=== PATIENT | female | born 2005 | race Caucasian/White ===

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

== ENCOUNTER 2024-03-01 07:35 | Emergency (ER) | payer SELFPAY ==
--- NOTE | 2024-03-01 08:05 | ER ---
Nurse's Notes [facility] Name: Miriam Giraldo Age: 18 yrs Sex: Female : 2005 Arrival Date: 03/01/2024 Time: 07:35 Bed 6 Private MD: Diagnosis: Streptococcal pharyngitis Presentation: 03/01 07:44 Chief complaint: Patient states: Body aches, sore throat, rash, fatigue for 4 days. ll1 Coronavirus screen: Client denies travel out of the [place] in the last 14 days. fatigue, fever, headache, sore throat, Client presents with at least one sign or symptom that may indicate coronavirus-19. Standard/surgical mask placed on the client. Ebola Screen: Patient denies travel to an Ebola-affected area in the 21 days before illness onset. Initial Sepsis Screen: Does the patient meet any 2 criteria? No. Patient's initial sepsis screen is negative. Does the patient have a suspected source of infection? No. Patient's initial sepsis screen is negative. Risk Assessment: Do you want to hurt yourself or someone else? Patient reports no desire to harm self or others. Onset of symptoms was February 27, 2024. 07:44 Method Of Arrival: Ambulatory ll1 07:44 Acuity: ELIDA 4 ll1 Triage Assessment: 07:45 General: Appears in no apparent distress. Behavior is calm, cooperative, appropriate bp for age. Pain: Complains of pain in neck. EENT: Reports pain when swallowing. Neuro: No deficits noted. Cardiovascular: No deficits noted. Respiratory: No deficits noted. GI: No signs and/or symptoms were reported involving the gastrointestinal system. : No signs and/or symptoms were reported regarding the genitourinary system. Derm: No deficits noted. Musculoskeletal: No deficits noted. Historical: - Allergies: 07:43 No Known Drug Allergies; ll1 - PMHx: 07:43 None; ll1 - PSHx: 07:43 None; ll1 - Immunization history:: Adult Immunizations up to date. - Infectious Disease History:: Denies. - Social history:: Smoking status: Patient denies any tobacco usage or history of. Screenin:45 [facility] ED Fall Risk Assessment (Adult) History of falling in the last 3 months, bp including since admission No falls in past 3 months (0 pts) Confusion or Disorientation No (0 pts) Intoxicated or Sedated No (0 pts) Impaired Gait No (0 pts) Mobility Assist Device Used No (0 pt) Altered Elimination No (0 pt) Score/Fall Risk Level 0 - 2 = Low Risk Oriented to surroundings. Abuse screen: Denies threats or abuse. Denies injuries from another. Nutritional screening: No deficits noted. Tuberculosis screening: No symptoms or risk factors identified. Assessment: 07:45 General: Appears in no apparent distress. Behavior is calm, cooperative, appropriate bp for age. Respiratory: Airway is patent Respiratory effort is even, unlabored, Breath sounds are clear bilaterally. EENT: Throat is reddened. Vital Signs: 07:44 BP 123 / 87; Pulse 108; Resp 17; Temp 98.2; Pulse Ox 100% ; Weight 44.45 kg; Height 5 ll1 ft. 2 in. ; Pain 10/10; 07:44 Body Mass Index 17.92 (44.45 kg, 157.48 cm) - Percentile 5.8 % ll1 07:44 Pain Scale: Adult ll1 ED Course: 07:37 Patient arrived in ED. mr 07:43 Arm band placed on Patient placed in an exam room, on a stretcher. ll1 07:45 Triage completed. ll1 07:45 Patient has correct armband on for positive identification. bp 07:51 Severiano Muhammad, ANGELITO is Primary Nurse. bp 07:59 Dinesh Byrne MD is Attending Physician. bo1 07:59 Provided Education on: use of call michel. Pulse ox on. jl7 07:59 No provider procedures requiring assistance completed. Patient did not have IV access jl7 during this emergency room visit. Administered Medications: No medications were administered Medication: 07:45 VIS not applicable for this client. bp Outcome: 08:04 Discharge ordered by . bo1 08:14 Discharged to home ambulatory, jl7 08:14 Condition: stable 08:14 Discharge instructions given to patient, Instructed on discharge instructions, follow up and referral plans. medication usage, Demonstrated understanding of instructions, follow-up care, medications, Prescriptions given X 1, 08:15 Patient left the ED. jl7 Signatures: Megha Alvarez, Reg Reg BrandBg RN RN jl7 Severiano Muhammad RN RN bp Lewis, Lynsay, RN RN ll1 Oei, Dinesh, MD MD bo1
--- NOTE | 2024-03-01 08:05 | EDPHYS ---
Physician Documentation [facility] Name: Miriam Giraldo Age: 18 yrs Sex: Female : 2005 Arrival Date: 03/01/2024 Time: 07:35 Bed 6 Private MD: ED Physician Dinesh Byrne HPI: 03/01 07:59 This 18 yrs old Female presents to ER via Ambulatory with complaints of Sore Throat, bo1 Rash. 07:59 The patient presents with sore throat. The patient describes throat pain as burning. bo1 Onset: The symptoms/episode began/occurred suddenly, 3 day(s) ago. Severity of symptoms: At their worst the symptoms were moderate, in the emergency department the symptoms have improved. Twice with strep throat. Also a skin rash, sand papery at the right hip and across the lower abd which has since resolved. Historical: - Allergies: 07:43 No Known Drug Allergies; ll1 - PMHx: 07:43 None; ll1 - PSHx: 07:43 None; ll1 - Immunization history:: Adult Immunizations up to date. - Infectious Disease History:: Denies. - Social history:: Smoking status: Patient denies any tobacco usage or history of. ROS: 08:01 Constitutional: Negative for fever, chills, and weight loss bo1 08:01 Constitutional: Positive for 08:01 ENT: Positive for difficulty swallowing, 08:01 Neck: Negative for pain with movement, pain at rest, 08:01 Cardiovascular: Negative for chest pain, 08:01 Respiratory: Negative for cough, shortness of breath, 08:01 Skin: Positive for rash, Rash has since resolved, 08:01 All other systems are negative, Exam: 08:02 Constitutional: This is a well developed, well nourished patient who is awake, alert, bo1 and in no acute distress. 08:02 Constitutional: The patient appears alert, awake, comfortable, non-toxic, 08:02 Head/face: Exam is negative for acute changes, 08:02 Eyes: Conjunctiva: no acute changes, 08:02 ENT: External ear(s): are unremarkable, TM's: are normal, Posterior pharynx: erythema, that is mild, exudate, is not appreciated, 08:02 Cardiovascular: Rate: normal, Pulses: no pulse deficits are appreciated, Heart sounds: normal, 08:02 Respiratory: the patient does not display signs of respiratory distress, Breath sounds: are clear throughout, 08:02 Skin: no rash present. Vital Signs: 07:44 BP 123 / 87; Pulse 108; Resp 17; Temp 98.2; Pulse Ox 100% ; Weight 44.45 kg; Height 5 ll1 ft. 2 in. ; Pain 10/10; 07:44 Body Mass Index 17.92 (44.45 kg, 157.48 cm) - Percentile 5.8 % ll1 07:44 Pain Scale: Adult ll1 MDM: 07:59 Medical Screening Exam initiated bo1 08:03 Differential diagnosis: group A strep tonsillitis, pharyngitis. bo1 08:03 Data reviewed: vital signs. Special discussion: I discussed with the patient/guardian bo1 that our pediatricians prefer to use Amoxicillin as a first-line therapy for the symtoms/findings of this patient's presentation, the parent(s) request Family and pt have elected to forgo any strep testing. Administered Medications: No medications were administered Disposition Summary: 03/01/24 08:04 Discharge Ordered Notes: Location: Home bo1 Problem: new bo1 Symptoms: are unchanged bo1 Condition: Stable bo1 Diagnosis - Streptococcal pharyngitis bo1 Followup: bo1 - With: Private Physician - When: Upon discharge from the Emergency Department - Reason: Recheck today's complaints, Continuance of care Discharge Instructions: - Discharge Summary Sheet bo1 - Strep Throat, Adult bo1 Forms: - Medication Reconciliation Form bo1 - Antibiotic Education bo1 - Prescription Opioid Use bo1 - Patient Portal Instructions bo1 - Leadership Thank You Letter bo1 Prescriptions: - Amoxicillin 250 mg/5 mL Oral Suspension for Reconstitution - take 10 milliliter ORAL route every 8 hours for 10 days; 300 milliliter; bo1 Refills: 0, Product Selection Permitted Signatures: Severiano Muhammad RN Concepción Davison RN RN ll Dinesh Byrne MD MD bo1
[2024-03-01 08:19] VITALS: BP 123/87; TEMP 98.2; O2SAT 100
== END 2024-03-01 08:15 | disposition home or self-care (01) ==
LOC: ER 07:35
DX: J02.0 Streptococcal pharyngitis (principal)
CPT/HCPCS: 99283

== ENCOUNTER 2024-03-04 08:19 | Emergency (ER) | payer SELFPAY ==
--- OUTSIDE RECORDS SUMMARY | 2024-03-04 08:23 | XMS REPORT | Continuity of Care Document ---
Author Name Unknown Address [address] [facility] [address] [place] [address] [facility] thconnect Address [address] [facility] [address] [place] [address] Care Team Providers Care Diabetes Clinical Manager Name Role Phone Bee Michael Primary Care Physician Allergies, Adverse Reactions, Alerts Allergy Name Allergy Type Status Severity Reaction(s) Onset Date Inactive Date Treating Clinician Comments Source [place] - Intraven ous Propensi ty to adverse reaction to drug Active 09-04 00:00: 00 Jarett Yudith Hussein Medications Ordered Medication Name Filled Medication Name Start Date Stop Date Current Medication? Ordering Clinician Indication Dosage Frequency Signature (SIG) Comments Components Source doxycycline hyclate 100 mg tablet 2023-03 1- 00:00: 00 Yes 1mg Jarett Savage [employer] Drafter a 150 mg/mL intramuscul ar syringe 2023-03 0-25 00:00: 00 Yes 1mg/mL Jarett Yudith Hussein metronidazo le 500 mg tablet 8- 00:00: 00 Yes 1mg Jarett Yudith Hussein [employer]fter a 150 mg/mL intramuscul ar syringe -06 00:00: 00 Yes 1mg/mL Jarett Yudith Hussein [employer] Drafter a 150 mg/mL intramuscul ar syringe 5-10 00:00: 00 Yes 1mg/mL Jarett Yudith Hussein AMOXICILLIN -CLAVULANAT E POTASS 875 MG-125 MG 4-10 00:00: 00 Yes Jarett Savage ONDANSETRON ODT 2022-03-13 00:00: 00 Yes Jarett Savage 1 TAB EVERY 8 HOURS NEEDED FOR NAUSEA 2022-03 00:00: 00 07-29 00:00 :00 No 4 Jarett Savage TAKE 1 CAPSULE EVERY 6 TO 8 HOURS NEEDED. 2022-03 00:00: 00 07-29 00:00 :00 No 10 Jarett Savage SMZ-TMP DS [id number] 0-30 00:00: 00 Yes Jarett Savage ONDANSETRON ODT 2022-03 0 00:00: 00 Yes Jarett Savage MEDROXYPR AC INJ /ML 08-20 00:00: 00 Yes Jarett Savage INJECT 1 ML INTRAMUSCUL ARIANA ONCE EVERY 3 MONTHS. 08-16 00:00: 00 07-29 00:00 :00 No 150 Jarett Savage TAKE 1 TABLET BY MOUTH 3 TIMES DAILY NEEDED. 08-06 00:00: 00 Yes Jarett Savage TAKE 1 CAPSULE BY MOUTH EVERY 6 HOURS 08-05 00:00: 00 Yes Jarett Savage MUPIROCIN OIN 2% 08-03 00:00: 00 Yes Jarett Savage TAKE 1 TABLET TWICE A DAY 08-03 00:00: 00 Yes Jarett Savage MEDROXYPR AC INJ /ML - 00:00: 00 Yes Jarett Savage INJECT 1 ML INTRAMUSCUL ARIANA ONCE EVERY 3 MONTHS. 3- 00:00: 00 07-29 00:00 :00 No 150 Jarett Savage TAKE 2 TABLETS BY MOUTH TODAY, THEN 1 TABLET ONCE DAILY FOR 4 DAYS - 00:00: 00 Yes Jarett Savage TAKE 1 CAPSULE BY MOUTH EVERY 6 HOURS NEEDED FOR ALLERGY - 00:00: 00 Yes Jarett Savage IBUPROFEN - 00:00: 00 Yes Jarett Savage MEDROXYPR AC INJ /ML 2021-03 2-06 00:00: 00 Yes Jarett Savage ONDANSETRON ODT 2021-03 00:00: 00 Yes 4 Jarett Savage TAKE 2 CAPSULES BY MOUTH TWICE DAILY 2021-03 0-19 00:00: 00 Yes Jarett Savage OMEPRAZOLE 2021-1 0-10 00:00: 00 Yes 20 Jarett Savage METRONIDAZO L 2021-1 0-10 00:00: 00 Yes 500 Jarett Savage CLARITHROMY C 1 0-10 00:00: 00 Yes 500 Jarett Savage TAKE 1 TABLET TWICE DAILY UNTIL FINISHED. 1 0-07 00:00: 00 Yes Jarett Savage TAKE 1 TABLET EVERY 12 HOURS DAILY. 2021-03 0-07 00:00: 00 Yes Jarett Savage FAMOTIDINE 2021-0 9- 00:00: 00 Yes 40 Jarett Savage TAKE 1 TABLET BY MOUTH EVERY 4 TO 6 HOURS NEEDED FOR PAIN 2-0 6-24 00:00: 00 Yes Jarett Savage Dose Unknown 2021-0 6-24 00:00: 00 Yes Jarett Savage &lt 2022-0 6-24 00:00: 00 Yes Jarett Savage TAKE 1 TABLET BY MOUTH EVERY 4 TO 6 HOURS NEEDED FOR PAIN 2-0 6-24 00:00: 00 No Dose Unknown 2021-0 6-24 00:00: 00 No &lt 2022-0 6-24 00:00: 00 No TAKE 1 TABLET BY MOUTH EVERY 4 TO 6 HOURS NEEDED FOR PAIN 2-0 6-24 00:00: 00 No Dose Unknown 2-0 6-24 00:00: 00 No &lt 2022-0 6-24 00:00: 00 No TAKE 1 TABLET BY MOUTH EVERY 4 TO 6 HOURS NEEDED FOR PAIN 2-0 6-24 00:00: 00 No Dose Unknown 2-0 6-24 00:00: 00 No &lt 2022-0 6-24 00:00: 00 No TAKE 1 TABLET BY MOUTH EVERY 4 TO 6 HOURS NEEDED FOR PAIN 2-0 6-24 00:00: 00 No Dose Unknown 2021-0 6-24 00:00: 00 No &lt 2022-0 6-24 00:00: 00 No PREDNISONE 2-0 6- 00:00: 00 Yes 20 Jarett Savage BROM/PSE/DM SYP 2-0 6- 00:00: 00 Yes Jarett Savage prednisone 20 mg tablet 2021-0 - 00:00: 00 Yes mg Jarett Savage Bromfed DM 2 mg-30 mg-10 mg/5 mL oral syrup 2022-0 6-20 00:00: 00 Yes 10mg/5 mL Jarett Savage &lt 2022-0 6-20 00:00: 00 Yes Jarett Savage &lt 2022-0 6-20 00:00: 00 Yes Jarett Savage &lt 2022-0 6-20 00:00: 00 Yes Jarett Savage TAKE 2 TEASPOONFUL (10 ML) BY MOUTH EVERY 4 HOURS NEEDED FOR COUGH 2022-0 6-20 00:00: 00 Yes Jarett Savage &lt 2022-0 6-20 00:00: 00 No &lt 2022-0 6-20 00:00: 00 No prednisone 20 mg tablet 2022-0 6-20 00:00: 00 No mg Bromfed DM 2 mg-30 mg-10 mg/5 mL oral syrup 2022-0 6-20 00:00: 00 No 10mg/5 mL &lt 2022-0 6-20 00:00: 00 No &lt 2022-0 6-20 00:00: 00 No &lt 2022-0 6-20 00:00: 00 No &lt 2022-0 6-20 00:00: 00 No prednisone 20 mg tablet 2022-0 6-20 00:00: 00 No mg Bromfed DM 2 mg-30 mg-10 mg/5 mL oral syrup 2022-0 6-20 00:00: 00 No 10mg/5 mL &lt 2022-0 6-20 00:00: 00 No &lt 2022-0 6-20 00:00: 00 No &lt 2022-0 6-20 00:00: 00 No prednisone 20 mg tablet 2022-0 6-20 00:00: 00 No mg Bromfed DM 2 mg-30 mg-10 mg/5 mL oral syrup 2022-0 6-20 00:00: 00 No 10mg/5 mL &lt 2022-0 6-20 00:00: 00 No &lt 2022-0 6-20 00:00: 00 No &lt 2022-0 6-20 00:00: 00 No prednisone 20 mg tablet 2022-0 6-20 00:00: 00 No mg Bromfed DM 2 mg-30 mg-10 mg/5 mL oral syrup 0 6-20 00:00: 00 No 10mg/5 mL TAKE 1 TABLET TWICE DAILY FOR 10 DAYS 0 5- 00:00: 00 Yes Jarett Savage DEPO-ZIGZAG STITCHER A INJ /ML 0 4-01 00:00: 00 05-14 00:00 :00 No 150 Jarett Savage medroxyprog esterone 150 mg/mL intramuscul ar suspension 0 08-11 00:00: 00 Yes 1mg/mL Jarett Savage medroxyprog esterone 150 mg/mL intramuscul ar suspension 0 08-11 00:00: 00 No 1mg/mL medroxyprog esterone 150 mg/mL intramuscul ar suspension 0 08-11 00:00: 00 No 1mg/mL medroxyprog esterone 150 mg/mL intramuscul ar suspension 0 08-11 00:00: 00 No 1mg/mL medroxyprog esterone 150 mg/mL intramuscul ar suspension 0 08-11 00:00: 00 No 1mg/mL metronidazo le 500 mg tablet 0 - 00:00: 00 Yes 1mg Jarett Savage metronidazo le 500 mg tablet 0 - 00:00: 00 No 1mg metronidazo le 500 mg tablet 0 04-14 00:00: 00 No 1mg metronidazo le 500 mg tablet 0 04-14 00:00: 00 No 1mg metronidazo le 500 mg tablet 0 04-14 00:00: 00 No 1mg clotrimazol e 1 % topical cream 11-03 00:00: 00 Yes 1% Jarett Savage clotrimazol e 1 % topical cream 11-03 00:00: 00 No 1% clotrimazol e 1 % topical cream 11-03 00:00: 00 No 1% clotrimazol e 1 % topical cream 11-03 00:00: 00 No 1% clotrimazol e 1 % topical cream 11-03 00:00: 00 No 1% Bromfed DM 2 mg-30 mg-10 mg/5 mL oral syrup 10-14 00:00: 00 Yes 10mg/5 mL Jarett F Hussein Bromfed DM 2 mg-30 mg-10 mg/5 mL oral syrup 10-14 00:00: 00 No 10mg/5 mL Bromfed DM 2 mg-30 mg-10 mg/5 mL oral syrup 10-14 00:00: 00 No 10mg/5 mL Bromfed DM 2 mg-30 mg-10 mg/5 mL oral syrup 10-14 00:00: 00 No 10mg/5 mL Bromfed DM 2 mg-30 mg-10 mg/5 mL oral syrup 10-14 00:00: 00 No 10mg/5 mL Vital Signs Vital Name Observation Time Observation Value Comments S ource BP Systolic 2024-01-22 10:06:00 122 mm[Hg] Step hen F Hussein BP Diastolic 2024-01-22 10:06:00 73 mm[Hg] Phill phen F Hussein Weight Measured 2024-01-22 10:06:00 99.80 pounds Jarett F Hussein Height Measured 2024-01-22 10:06:00 61.80 inches Jarett F Hussein Body Temperature 2024-01-22 10:06:00 98.20 degrees Jarett F Hussein Heart Rate 2024-01-22 10:06:00 113.00 /min Step hen F Hussein Respiratory Rate 2024-01-22 10:06:00 19.00 /min Jarett F Hussein BP Systolic 2024-01-10 08:41:00 112 mm[Hg] Step hen F Hussein BP Diastolic 2024-01-10 08:41:00 71 mm[Hg] Phill phen F Hussein Weight Measured 2024-01-10 08:41:00 96.80 pounds Jarett F Hussein Height Measured 2024-01-10 08:41:00 61.80 inches Jarett F Hussein Body Temperature 2024-01-10 08:41:00 98.70 degrees Jarett F Hussein Heart Rate 2024-01-10 08:41:00 91.00 /min Eliane en F Hussein Respiratory Rate 2024-01-10 08:41:00 19.00 /min Jarett F Hussein BP Systolic 2023-10-24 17:15:00 124 mm[Hg] Step hen F Hussein BP Diastolic 2023-10-24 17:15:00 89 mm[Hg] Phill phen F Hussein Weight Measured 2023-10-24 17:15:00 98.90 pounds Jarett F Hussein Height Measured 2023-10-24 17:15:00 61.80 inches Jarett F Hussein Body Temperature 2023-10-24 17:15:00 98.10 degrees Jarett F Hussein Heart Rate 2023-10-24 17:15:00 83.00 /min Eliane en F Hussein Respiratory Rate 2023-10-24 17:15:00 17.00 /min Jarett F Hussein BP Systolic 2023-10-22 08:28:00 108 mm[Hg] Step hen F Hussein BP Diastolic 2023-10-22 08:28:00 71 mm[Hg] Phill phen F Hussein Weight Measured 2023-10-22 08:28:00 99.40 pounds Jarett F Hussein Height Measured 2023-10-22 08:28:00 61.80 inches Jarett F Hussein Body Temperature 2023-10-22 08:28:00 97.30 degrees Jarett F Hussein Heart Rate 2023-10-22 08:28:00 87.00 /min Eliane en F Hussein Respiratory Rate 2023-10-22 08:28:00 18.00 /min Jarett F Hussein BP Systolic 2023-07-26 13:53:00 143 mm[Hg] Step hen F Hussein BP Diastolic 2023-07-26 13:53:00 80 mm[Hg] Phill phen F Hussein Weight Measured 2023-07-26 13:53:00 104.20 pounds Jarett F Hussein Height Measured 2023-07-26 13:53:00 61.80 inches Jarett F Hussein Body Temperature 2023-07-26 13:53:00 98.10 degrees Jarett F Hussein Heart Rate 2023-07-26 13:53:00 98.00 /min Eliane en F Hussein Respiratory Rate 2023-07-26 13:53:00 19.00 /min Jarett F Hussein BP Systolic 2023-04-25 08:16:00 128 mm[Hg] Step hen F Hussein BP Diastolic 2023-04-25 08:16:00 83 mm[Hg] Phill phen F Hussein Weight Measured 2023-04-25 08:16:00 110.00 pounds Jarett F Hussein Height Measured 2023-04-25 08:16:00 61.80 inches Jarett F Hussein Body Temperature 2023-04-25 08:16:00 98.50 degrees Jarett F Hussein Heart Rate 2023-04-25 08:16:00 100.00 /min Step hen F Hussein Respiratory Rate 2023-04-25 08:16:00 19.00 /min Jarett F Hussein BP Systolic 2023-02-06 09:28:00 124 mm[Hg] Step hen F Hussein BP Diastolic 2023-02-06 09:28:00 87 mm[Hg] Phill phen F Hussein Weight Measured 2023-02-06 09:28:00 121.40 pounds Jarett F Hussein Height Measured 2023-02-06 09:28:00 61.80 inches Jarett F Hussein Body Temperature 2023-02-06 09:28:00 97.50 degrees Jarett F Hussein Heart Rate 2023-02-06 09:28:00 92.00 /min Eliane en F Hussein Respiratory Rate 2023-02-06 09:28:00 Jarett F Hussein BP Systolic 2022-11-07 08:31:00 116 mm[Hg] Step hen F Hussein BP Diastolic 2022-11-07 08:31:00 80 mm[Hg] Phill phen F Hussein Weight Measured 2022-11-07 08:31:00 144.20 pounds Jarett F Hussein Height Measured 2022-11-07 08:31:00 61.80 inches Jarett F Hussein Body Temperature 2022-11-07 08:31:00 98.20 degrees Jarett F Hussein Heart Rate 2022-11-07 08:31:00 80.00 /min Eliane en F Hussein Respiratory Rate 2022-11-07 08:31:00 19.00 /min Jarett F Hussein BP Systolic 2022-08-16 15:46:00 118 mm[Hg] Step hen F Hussein BP Diastolic 2022-08-16 15:46:00 82 mm[Hg] Phill phen F Hussein Weight Measured 2022-08-16 15:46:00 151.40 pounds Jarett F Hussein Height Measured 2022-08-16 15:46:00 61.80 inches Jarett F Hussein Body Temperature 2022-08-16 15:46:00 98.40 degrees Jarett F Hussein Heart Rate 2022-08-16 15:46:00 92.00 /min Eliane en F Hussein Respiratory Rate 2022-08-16 15:46:00 18.00 /min Jarett F Hussein BP Systolic 2022-05-21 15:11:00 108 mm[Hg] Step hen F Hussein BP Diastolic 2022-05-21 15:11:00 74 mm[Hg] Phill phen F Hussein Weight Measured 2022-05-21 15:11:00 142.20 pounds Jarett F Hussein Height Measured 2022-05-21 15:11:00 61.81 inches Jarett F Hussein Body Temperature 2022-05-21 15:11:00 97.90 degrees Jarett F Hussein Heart Rate 2022-05-21 15:11:00 110.00 /min Step hen F Hussein Respiratory Rate 2022-05-21 15:11:00 18.00 /min Jarett F Hussein BP Systolic 2022-02-20 14:07:00 116 mm[Hg] Step hen F Hussein BP Diastolic 2022-02-20 14:07:00 73 mm[Hg] Phill phen F Hussein Weight Measured 2022-02-20 14:07:00 138.00 pounds Jarett F Hussein Height Measured 2022-02-20 14:07:00 61.81 inches Jarett F Hussein Body Temperature 2022-02-20 14:07:00 98.30 degrees Jarett F Hussein Heart Rate 2022-02-20 14:07:00 109.00 /min Step hen F Hussein Respiratory Rate 2022-02-20 14:07:00 Jarett F Hussein BP Systolic 2022-01-03 09:14:00 133 mm[Hg] Step hen F Hussein BP Diastolic 2022-01-03 09:14:00 84 mm[Hg] Phill phen F Hussein Weight Measured 2022-01-03 09:14:00 133.80 pounds Jarett F Hussein Height Measured 2022-01-03 09:14:00 61.81 inches Jarett F Hussein Body Temperature 2022-01-03 09:14:00 98.10 degrees Jarett F Hussein Heart Rate 2022-01-03 09:14:00 91.00 /min Eliane en F Hussein Respiratory Rate 2022-01-03 09:14:00 17.00 /min Jarett F Hussein BP Systolic 2021-12-12 14:19:00 119 mm[Hg] Step hen F Hussein BP Diastolic 2021-12-12 14:19:00 77 mm[Hg] Phill phen F Hussein Weight Measured 2021-12-12 14:19:00 136.80 pounds Jarett F Hussein Height Measured 2021-12-12 14:19:00 61.81 inches Jarett F Hussein Body Temperature 2021-12-12 14:19:00 98.10 degrees Jarett F Hussein Heart Rate 2021-12-12 14:19:00 103.00 /min Step hen F Hussein Respiratory Rate 2021-12-12 14:19:00 18.00 /min Jarett F Hussein BP Systolic 2021-12-05 09:09:00 126 mm[Hg] Step hen F Hussein BP Diastolic 2021-12-05 09:09:00 84 mm[Hg] Phill phen F Hussein Weight Measured 2021-12-05 09:09:00 137.20 pounds Jarett F Hussein Height Measured 2021-12-05 09:09:00 61.81 inches Jarett F Hussein Body Temperature 2021-12-05 09:09:00 98.10 degrees Jarett F Hussein Heart Rate 2021-12-05 09:09:00 105.00 /min Step hen F Hussein Respiratory Rate 2021-12-05 09:09:00 18.00 /min Jarett F Hussein BP Systolic 2021-09-08 09:10:00 103 mm[Hg] BP Diastolic 2021-09-08 09:10:00 73 mm[Hg] Weight Measured 2021-09-08 09:10:00 130.40 pounds Height Measured 2021-09-08 09:10:00 61.81 inches Body Temperature 2021-09-08 09:10:00 98.30 degrees Heart Rate 2021-09-08 09:10:00 94.00 /min Respiratory Rate 2021-09-08 09:10:00 BP Systolic 2021-06-16 09:44:00 117 mm[Hg] BP Diastolic 2021-06-16 09:44:00 78 mm[Hg] Weight Measured 2021-06-16 09:44:00 125.80 pounds Height Measured 2021-06-16 09:44:00 61.81 inches Body Temperature 2021-06-16 09:44:00 97.90 degrees Heart Rate 2021-06-16 09:44:00 81.00 /min Respiratory Rate 2021-06-16 09:44:00 16.00 /min BP Systolic 2021-03-31 09:32:00 137 mm[Hg] BP Diastolic 2021-03-31 09:32:00 83 mm[Hg] Weight Measured 2021-03-31 09:32:00 123.60 pounds Height Measured 2021-03-31 09:32:00 61.81 inches Body Temperature 2021-03-31 09:32:00 98.40 degrees Heart Rate 2021-03-31 09:32:00 97.00 /min Respiratory Rate 2021-03-31 09:32:00 BP Systolic 2021-01-12 08:22:00 118 mm[Hg] BP Diastolic 2021-01-12 08:22:00 79 mm[Hg] Weight Measured 2021-01-12 08:22:00 127.20 pounds Height Measured 2021-01-12 08:22:00 61.81 inches Body Temperature 2021-01-12 08:22:00 98.20 degrees Heart Rate 2021-01-12 08:22:00 91.00 /min Respiratory Rate 2021-01-12 08:22:00 17.00 /min BP Systolic 2020-10-27 08:23:00 125 mm[Hg] BP Diastolic 2020-10-27 08:23:00 82 mm[Hg] Weight Measured 2020-10-27 08:23:00 133.80 pounds Height Measured 2020-10-27 08:23:00 61.81 inches Body Temperature 2020-10-27 08:23:00 98.30 degrees Heart Rate 2020-10-27 08:23:00 87.00 /min Respiratory Rate 2020-10-27 08:23:00 16.00 /min BP Systolic 2020-08-11 09:21:00 118 mm[Hg] BP Diastolic 2020-08-11 09:21:00 84 mm[Hg] Weight Measured 2020-08-11 09:21:00 125.60 pounds Height Measured 2020-08-11 09:21:00 61.81 inches Body Temperature 2020-08-11 09:21:00 98.90 degrees Heart Rate 2020-08-11 09:21:00 85.00 /min Respiratory Rate 2020-08-11 09:21:00 16.00 /min BP Systolic 2020-05-25 09:05:00 109 mm[Hg] BP Diastolic 2020-05-25 09:05:00 72 mm[Hg] Weight Measured 2020-05-25 09:05:00 124.20 pounds Height Measured 2020-05-25 09:05:00 61.81 inches Body Temperature 2020-05-25 09:05:00 98.00 degrees Heart Rate 2020-05-25 09:05:00 106.00 /min Respiratory Rate 2020-05-25 09:05:00 17.00 /min BP Systolic 2020-04-14 15:08:00 125 mm[Hg] BP Diastolic 2020-04-14 15:08:00 85 mm[Hg] Weight Measured 2020-04-14 15:08:00 118.20 pounds Height Measured 2020-04-14 15:08:00 61.81 inches Body Temperature 2020-04-14 15:08:00 97.90 degrees Heart Rate 2020-04-14 15:08:00 99.00 /min Respiratory Rate 2020-04-14 15:08:00 18.00 /min BP Systolic 2019-12-17 08:45:00 120 mm[Hg] BP Diastolic 2019-12-17 08:45:00 81 mm[Hg] Weight Measured 2019-12-17 08:45:00 113.40 pounds Height Measured 2019-12-17 08:45:00 61.81 inches Body Temperature 2019-12-17 08:45:00 98.10 degrees Heart Rate 2019-12-17 08:45:00 101.00 /min Respiratory Rate 2019-12-17 08:45:00 17.00 /min Plan of Care Planned Activity Planned Date Details Comments Source Goal Plan of Care Note [code = 63704-0] Goal Plan of Care Note [code = 96410-6] Goal Plan of Care Note [code = 68719-6] Goal Plan of Care Note [code = 94265-5] Goal Plan of Care Note [code = 02707-3] Goal Plan of Care Note [code = 69330-8] Goal Plan of Care Note [code = 77957-8] Goal Plan of Care Note [code = 79727-7] Goal Plan of Care Note [code = 35975-5] Goal Plan of Care Note [code = 10544-0] Goal Plan of Care Note [code = 26942-8] Goal Plan of Care Note [code = 95116-0] Goal Plan of Care Note [code = 10281-8] Goal Plan of Care Note [code = 78359-6] Goal Plan of Care Note [code = 97918-3] Goal Plan of Care Note [code = 41972-9] Goal Plan of Care Note [code = 22268-9] Goal Plan of Care Note [code = 10952-0] Goal Plan of Care Note [code = 96385-8] Goal Plan of Care Note [code = 08397-3] Goal Plan of Care Note [code = 80489-3] Goal Plan of Care Note [code = 37838-4] Goal Plan of Care Note [code = 32390-1] Goal Plan of Care Note [code = 63044-4] Goal Plan of Care Note [code = 32798-6] Goal Plan of Care Note [code = 01362-9] Goal Plan of Care Note [code = 62053-1] Goal Plan of Care Note [code = 11793-5] Goal Plan of Care Note [code = 14925-3] Goal Plan of Care Note [code = 98334-4] Goal Plan of Care Note [code = 06716-6] Goal Plan of Care Note [code = 12515-6] Goal Plan of Care Note [code = 01286-6] Goal Plan of Care Note [code = 65064-4] Goal Plan of Care Note [code = 02346-3] Goal Plan of Care Note [code = 58048-6] Goal Plan of Care Note [code = 05794-3] Goal Plan of Care Note [code = 30237-3] Goal Plan of Care Note [code = 67001-5] Goal Plan of Care Note [code = 23351-2] Goal Plan of Care Note [code = 31584-5] Goal Plan of Care Note [code = 70096-2] Goal Plan of Care Note [code = 69964-2] Goal Plan of Care Note [code = 08099-4] Goal Plan of Care Note [code = 47501-6] Goal Plan of Care Note [code = 13615-8] Goal Plan of Care Note [code = 70840-5] Goal Plan of Care Note [code = 74867-4] Goal Plan of Care Note [code = 65232-7] Goal Plan of Care Note [code = 46029-2] Goal Plan of Care Note [code = 09362-0] Goal Plan of Care Note [code = 69870-7] Goal Plan of Care Note [code = 90651-1] Goal Plan of Care Note [code = 35685-9] Goal Plan of Care Note [code = 24419-0] Goal Plan of Care Note [code = 49031-5] Goal Plan of Care Note [code = 99743-7] Goal Plan of Care Note [code = 92331-4] Goal Plan of Care Note [code = 11643-6] Goal Plan of Care Note [code = 39685-0] Goal Plan of Care Note [code = 73716-8] Goal Plan of Care Note [code = 15928-8] Goal Plan of Care Note [code = 96121-5] Goal Plan of Care Note [code = 43067-5] Goal Plan of Care Note [code = 08477-0] Goal Plan of Care Note [code = 55251-5] Goal Plan of Care Note [code = 20872-9] Goal Plan of Care Note [code = 73162-8] Goal Plan of Care Note [code = 46858-0] Goal Plan of Care Note [code = 12909-7] Goal Plan of Care Note [code = 97547-9] Goal Plan of Care Note [code = 12100-1] Goal Plan of Care Note [code = 98219-2] Goal Plan of Care Note [code = 63992-4] Goal Plan of Care Note [code = 57294-0] Goal Plan of Care Note [code = 22385-0] Goal Plan of Care Note [code = 37045-2] Goal Plan of Care Note [code = 65717-9] Goal Plan of Care Note [code = 17620-8] Goal Plan of Care Note [code = 31572-0] Goal Plan of Care Note [code = 83111-0] Goal Plan of Care Note [code = 25229-9] Goal Plan of Care Note [code = 64959-9] Goal Plan of Care Note [code = 86195-3] Goal Plan of Care Note [code = 39829-2] Encounters Start Date/Time End Date/Time Encounter Type Admission Type Attending [facility] Care Department Encounter ID Source 2024-01-22 09:59:56 2024-01-22 09:59:[address] [facility] [id number] Jarett Savage 2024-01-22 00:00:00 2024-01-22 00:00:00 Outpatient Visit SFA [id number] Jarett Savage 2024-01-10 08:35:55 2024-01-10 08:35:[address] [facility] [id number] Jarett Savage 2024-01-10 00:00:00 2024-01-10 00:00:00 Outpatient Visit SFA [id number] Jarett Savage 2023-10-24 17:05:31 2023-10-24 17:05:[address] [facility] [id number] Jarett Savage 2023-10-24 00:00:00 2023-10-24 00:00:00 Outpatient Visit SFA [id number] Jarett Savage 2023-10-22 09:25:36 2023-10-22 09:25:[address] [facility] [id number] Jarett Savage 2023-10-22 00:00:00 2023-10-22 00:00:00 Outpatient Visit SFA [id number] Jarett Savage 2023-07-26 13:43:40 2023-07-26 13:43:[address] [facility] [id number] Jarett Savage 2023-07-26 00:00:00 2023-07-26 00:00:00 Outpatient Visit SFA SFA [id number] Jarett Savage 2023-04-25 08:07:16 2023-04-25 08:07:16 Outpatient SFA [facility] [id number] Jarett Savage 2023-02-06 09:21:05 2023-02-06 09:21:05 Outpatient SFA [facility] [id number] Jarett Savage 2022-11-07 08:24:11 2022-11-07 08:24:11 Outpatient SFA [facility] [id number] Jarett Savage 2022-08-16 15:30:00 2022-08-16 15:30:00 Outpatient SFA [facility] [id number] Jarett Savage 2022-05-21 14:51:56 2022-05-21 14:51:56 Outpatient SFA S[facility] [id number] Jarett Savage 2022-02-20 13:56:01 2022-02-20 13:56:01 Outpatient SFA S[facility] [id number] Jarett Savage 2022-01-06 00:00:00 2022-01-06 00:00:00 Outpatient Visit [id number] 2022-01-03 09:02:00 2022-01-03 09:02:00 Outpatient SFA SFA [id number] Jarett Savage 2022-01-03 00:00:00 2022-01-03 00:00:00 Outpatient Visit [id number] -[id number]-[id number] 2021-12-28 13:34:32 2021-12-28 13:34:32 Outpatient SFA SFA [id number] Jarett Savage 2021-12-20 00:00:2021-12-20 00:00:00 Outpatient Visit [id number] 2021-12-12 00:00:00 2021-12-12 00:00:00 Outpatient Visit [id number] -[id number]-[id number] [id number] 2021-12-05 00:00:00 2021-12-05 00:00:00 Outpatient Visit [id number] Results Test Description Test Time Test Comments Results Result Co mments Source Jarett Zurita AustinCT/NG, NAAT, [id number] 00:00:00* Test Item Value Reference Range Interpretation Comme nts CHLAMYDIA, NAAT, URINE (test code = 47345) NEGATIVE GONORRHEA, NAAT, URINE (test code = 33134) NEGATIVE Jarett Zurita AustinCT/NG, NAAT, [id number] 00:00:00* Test Item Value Reference Range Interpretation Comme nts CHLAMYDIA, NAAT, URINE (test code = 94218) NEGATIVE GONORRHEA, NAAT, URINE (test code = 32563) NEGATIVE Jarett Zurita AustinTRICHOMONAS, URINE, [id number] 00:00:00* Test Item Value Reference Range Interpretation Comme nts TRICHOMONAS, NAAT, URINE (te st code = 57171) NEGATIVE Jarett Zurita AustinTRICHOMONAS, URINE, [id number] 00:00:00* Test Item Value Reference Range Interpretation Comme nts TRICHOMONAS, NAAT, URINE (te st code = 34016) NEGATIVE Jarett Zurita AustinTRICHOMONAS, URINE, [id number] 00:00:00* Test Item Value Reference Range Interpretation Comme nts TRICHOMONAS, NAAT, URINE (te st code = 15594) NEGATIVE Jarett Zurita AustinOVALBUMIN [id number] 16:49:12* Test Item Value Reference Range Interpretation Comme nts OVALBUMIN IgE (test code = 07427) <0.10 KU/L <0.35 OVALBUMIN CLASS (test code = 02387) 0 OVOMUCOID [id number] 16:49:12* Test Item Value Reference Range Interpretation Comme nts OVOMUCOID IgE (test code = 24343) <0.10 KU/L <0.35 OVOMUCOID CLASS (test code = 42079) 0 UNLESS OTHER OCAMPO INDICATED, ALL TESTING PERFORMED [facility] PATHOLOGY [employer] [address] [place] [address] TRUST MANAGER: FRED CARRINGTON M.D. CLIA NUMBER [id number] [place] [id number] OVALBUMIN IgE [REFLEX]2022-01-05 00:00:00* Test Item Value Reference Range Interpretation Comme nts OVALBUMIN IgE (test code = 53579) <0.10 KU/L Jarett Zurita AustinOVOMUCOID IgE [REFLEX]2022-01-05 00:00:00* Test Item Value Reference Range Interpretation Comme nts OVOMUCOID IgE (test code = 55650) <0.10 KU/L Jarett Zurita AustinOVALBUMIN IgE [REFLEX]2022-01-05 00:00:00* Test Item Value Reference Range Interpretation Comme nts OVALBUMIN IgE (test code = 24092) <0.10 KU/L Jarett Zurita AustinOVOMUCOID IgE [REFLEX]2022-01-05 00:00:00* Test Item Value Reference Range Interpretation Comme nts OVOMUCOID IgE (test code = 96729) <0.10 KU/L Jarett Zurita AustinOVALBUMIN IgE [REFLEX]2022-01-05 00:00:00* Test Item Value Reference Range Interpretation Comme nts OVALBUMIN IgE (test code = 01960) <0.10 KU/L OVALBUMIN CLASS (test code = 41047) OVOMUCOID IgE [REFLEX]2022-01-05 00:00:00* Test Item Value Reference Range Interpretation Comme nts OVOMUCOID IgE (test code = 79201) <0.10 KU/L OVOMUCOID CLASS (test code = 44503) OVALBUMIN IgE [REFLEX]2022-01-05 00:00:00* Test Item Value Reference Range Interpretation Comme nts OVALBUMIN IgE (test code = 21477) <0.10 KU/L Jarett F AustinOVOMUCOID IgE [REFLEX]2022-01-05 00:00:00* Test Item Value Reference Range Interpretation Comme nts OVOMUCOID IgE (test code = 68248) <0.10 KU/L Jarett F AustinOVALBUMIN IgE [REFLEX]2022-01-05 00:00:00* Test Item Value Reference Range Interpretation Comme nts OVALBUMIN IgE (test code = 15643) <0.10 KU/L Jarett F AustinOVOMUCOID IgE [REFLEX]2022-01-05 00:00:00* Test Item Value Reference Range Interpretation Comme nts OVOMUCOID IgE (test code = 12783) <0.10 KU/L Jarett F AustinOVALBUMIN IgE [REFLEX]2022-01-05 00:00:00* Test Item Value Reference Range Interpretation Comme nts OVALBUMIN IgE (test code = 43550) <0.10 KU/L Jarett AustinOVOMUCOID IgE [REFLEX]2022-01-05 00:00:00* Test Item Value Reference Range Interpretation Comme nts OVOMUCOID IgE (test code = 43491) <0.10 KU[facility] PAN[facility] WITH TOTAL [id number] 18:32:00* Test Item Value Reference Range Interpretation Comme [place], [place] IgE (test code = 47493) <0.10 KU/L <0.35 [place], [place] CLASS (test code = 41675) 0 D. PTERONYSSINUS IgE (test code = 57046) 27.4 KU/L <0.35 H D. PTERONYS. CLASS (test code = 74582) 4 H D. FARINAE IgE (test code = 20669) 10.90 KU/L <0.35 H D. FARINAE CLASS (test code = 93507) 3 H CAT EPITHELIUM IgE (test code = 44760) <0.10 KU/L <0.35 CAT EPITHELIUM CLASS (test code = 07949) 0 DOG DANDER IgE (test code = 22891) <0.10 KU/L <0.35 DOG DANDER CLASS (test code = 13979) 0 RONNI GRASS IgE (test code = 58058) <0.10 KU/L <0.35 RONNI GRASS CLASS (test code = 81833) 0 BERMUDA GRASS IgE (test code = 96507) <0.10 KU/L <0.35 BERMUDA GRASS CLASS (test code = 90388) 0 PERENNIAL RYE IgE (test code = 21382) <0.10 KU/L <0.35 PERENNIAL RYE CLASS (test code = 52406) 0 LUX GRASS IgE (test code = 91268) <0.10 KU/L <0.35 LUX GRASS CLASS (test code = 17390) 0 P. CHRYSOGENUM IgE (test code = 76619) <0.10 KU/L <0.35 P. CHRYSOGENUM CLASS (test code = 28198) 0 C. LUNATA IgE (test code = 11898) <0.10 KU/L <0.35 C. LUNATA CLASS (test code = 54691) 0 C. HERBARUM IgE (test code = 81601) <0.10 KU/L <0.35 C. HERBARUM CLASS (test code = 33171) 0 A. ALTERNATA IgE (test code = 63661) <0.10 KU/L <0.35 A. ALTERNATA CLASS (test code = 27212) 0 [place] IgE (test code = 75434) <0.10 KU/L <0.35 [place] CLASS (test code = 87702) 0 M[place] TREE IgE (test code = 63383) <0.10 KU/L <0.35 [place] CLASS (test code = 37235) 0 PECAN/HICKORY TREE IgE (test code = 72479) <0.10 KU/L <0.35 PECAN/HICKORY CLASS (test code = 87210) 0 [place] IgE (test code = 45877) <0.10 KU/L <0.35 [place] CLASS (test code = 05885) 0 ELM, RUSSIAN IgE (test code = 04615) <0.10 KU/L <0.35 ELM, RUSSIAN CLASS (test code = 31809) 0 RAGWEED, COMMON IgE (test code = 35121) <0.10 KU/L <0.35 RAGWEED, COMMON CLASS (test code = 45104) 0 YBARRA'S QUARTER IgE (test code = 41424) <0.10 KU/L <0.35 YBARRA'S QUARTER CLASS (test code = 10353) 0 [place] THISTLE IgE (test code = 25541) <0.10 KU/L <0.35 [place] THISTLE CLASS (test code = 62985) 0 PIGWEED/CARELESS IgE (test code = 19266) <0.10 KU/L <0.35 PIGWEED/CARELESS CLS (test code = 58062) 0 MARSHELDER, ROUGH IgE (test code = 76268) <0.10 KU/L <0.35 MARSHELDER, ROUGH CLASS (test code = 27761) 0 RAGWEED, FALSE IgE (test code = 56030) <0.10 KU/L <0.35 RAGWEED, FALSE CLASS (test code = 94630) 0 IMMUNOGLOBULIN E (IgE) (test code = 50945) 818 KU/L See_Comment H [Automated m essage] The system which generated this result transmitted reference range: <=549. The reference range was not used to interpret this result as normal/abnormal. PEDIATRIC FOOD IgE PANEL WITH [id number] 18:29:59* Test Item Value Reference Range Interpretation Comme nts SOYBEAN IgE (test code = 97467) <0.10 KU/L <0.35 SOYBEAN CLASS (test code = 52891) 0 PECAN NUT IgE (test code = 80934) <0.10 KU/L <0.35 PECAN NUT CLASS (test code = 48662) 0 WHEAT IgE (test code = 69271) <0.10 KU/L <0.35 WHEAT CLASS (test code = 71243) 0 OAT IgE (test code = 69129) <0.10 KU/L <0.35 OAT CLASS (test code = 77463) 0 EGG YOLK IgE (test code = 27102) <0.10 KU/L <0.35 EGG YOLK CLASS (test code = 05855) 0 CORN IgE (test code = 86967) <0.10 KU/L <0.35 CORN CLASS (test code = 75032) 0 RICE IgE (test code = 59913) <0.10 KU/L <0.35 RICE CLASS (test code = 99419) 0 COCOA IgE (test code = 01938) <0.10 KU/L <0.35 COCOA CLASS (test code = 90124) 0 EGG WHITE IgE (test code = ) 0.14 KU/L <0.35 EGG WHITE CLASS (test code = ) 0/1 MILK IgE (test code = ) <0.10 KU/L <0.35 MILK CLASS (test code = ) 0 PEANUT IgE (test code = 32967) <0.10 KU/L <0.10 PEANUT CLASS (test code = 79202) 0 [facility] [id number] 13:56:16* Test Item Value Reference Range Interpretation Comme nts INTERPRETATION: (test code = 1989) (NOTE) CLASS RANGE(k u/L) INTERPRETATION 0 <0.10 Normal, no specific IgE identified 0/1 0.10-0.34 Equivocal, indeterminate significance 1 0.35-0.69 Low level specific IgE 2 0.70-3.49 Moderate level specific IgE 3 3.50-17.49 High level specific IgE 4 17.50-49.99 Very high levels 5 50.00-99.99 of specific IgE 6 >=100.00 antibodies Note: Test results reflect expanded analytic measurable range. Allergen specific IgE values of 0.10-0.34 kU/L (class 0/1) are of indeterminate significance and may require specific clinical expertise for interpretation. Other than peanut and peanut components, values in this range will not be reported with out of range flagging. Testing performed on [employer] using ImmunoCAP Specific IgE reagents. * If Antibodies are followed by an asterisk (*) they have been developed and their performance characteristics determined by [facility] ([facility]). They have not been cleared or approved by the U.S. Food and Drug Administration (FDA). The FDA has determined that such clearance or approval is not necessary. These assays are intended to be used for clinical purposes. Analyte specific reagents were used. They should not be regarded as investigational or for research. [facility] is regulated under the Clinical Laboratory Improvement Amendments of 1988 (CLIA) as qualified to perform high complexity clinical testing. PEDIATRIC AEROALLERGEN IgE PANEL WITH TOTAL [id number] 00:00:00* Test Item Value Reference Range Interpretation Comme nts [place] IgE (test code = 86400) <0.10 KU/L D. PTERONYSSINUS IgE (test c ode = 12702) 27.4 KU/L D. PTERONYS. CLASS (test cod e = 53012) 4 D. FARINAE IgE (test code = 40060) 10.90 KU/L D. FARINAE CLASS (test code = 91277) 3 CAT EPITHELIUM IgE (test cod e = 43981) <0.10 KU/L DOG DANDER IgE (test code = 63731) <0.10 KU/L RONNI GRASS IgE (test code = 18297) <0.10 KU/L BERMUDA GRASS IgE (test code = 16534) <0.10 KU/L PERENNIAL RYE IgE (test code = 59996) <0.10 KU/L LUX GRASS IgE (test code = 17125) <0.10 KU/L P. CHRYSOGENUM IgE (test cod e = 11301) <0.10 KU/L C. LUNATA IgE (test code = 09874) <0.10 KU/L C. HERBARUM IgE (test code = 82835) <0.10 KU/L A. ALTERNATA IgE (test code = 20557) <0.10 KU/L [place] IgE (test code = 70012) <0.10 KU/L [place] IgE (test code = 42314) <0.10 KU/L PECAN/HICKORY TREE IgE (test code = 10559) <0.10 KU/L [place] IgE (test cod e = 82086) <0.10 KU/L [place], [place]SI[place] IgE (test code = 38599) <0.10 KU/L RAGWEED, COMMON IgE (test co de = 59237) <0.10 KU/L YBARRA'S QUARTER IgE (test cod e = 84456) <0.10 KU/L [place] THISTLE IgE (test co de = 66174) <0.10 KU/L PIGWEED/CARELESS IgE (test c ode = 41982) <0.10 KU/L MARSHELDER, ROUGH IgE (test code = 33869) <0.10 KU/L RAGWEED, FALSE IgE (test cod e = 32117) <0.10 KU/L IMMUNOGLOBULIN E (IgE) (test code = 76887) 818 KU/L Jarett SavageL ALLERGENS [REFLEX]2022-01-04 00:00:00* Test Item Value Reference Range Interpretation Comme nts INTERPRETATION: (test code = 1989) (NOTE) Jarett Zurita [place] PAN[place] WITH [id number] 00:00:00* Test Item Value Reference Range Interpretation Comme nts SOYBEAN IgE (test code = 24494) <0.10 KU/L PECAN NUT IgE (test code = 59142) <0.10 KU/L WHEAT IgE (test code = 53952) <0.10 KU/L OAT IgE (test code = 10398) <0.10 KU/L EGG YOLK IgE (test code = 57722) <0.10 KU/L CORN IgE (test code = 33877) <0.10 KU/L RICE IgE (test code = 81385) <0.10 KU/L COCOA IgE (test code = 67588) <0.10 KU/L EGG WHITE IgE (test code = 70694) 0.14 KU/L EGG WHITE CLASS (test code = ) 0/1 MILK IgE (test code = ) <0.10 KU/L PEANUT IgE (test code = 96789) <0.10 KU/L [facility] WITH TOTAL [id number] 00:00:00* Test Item Value Reference Range Interpretation Comme nts [place] IgE (test code = 29391) <0.10 KU/L D. PTERONYSSINUS IgE (test c ode = 09516) 27.4 KU/L D. PTERONYS. CLASS (test cod e = 78542) 4 D. FARINAE IgE (test code = 87610) 10.90 KU/L D. FARINAE CLASS (test code = 60721) 3 CAT EPITHELIUM IgE (test cod e = 34396) <0.10 KU/L DOG DANDER IgE (test code = 88208) <0.10 KU/L RONNI GRASS IgE (test code = 89436) <0.10 KU/L BERMUDA GRASS IgE (test code = 10955) <0.10 KU/L PERENNIAL RYE IgE (test code = 83866) <0.10 KU/L LUX GRASS IgE (test code = 80221) <0.10 KU/L P. CHRYSOGENUM IgE (test cod e = 42170) <0.10 KU/L C. LUNATA IgE (test code = 16082) <0.10 KU/L C. HERBARUM IgE (test code = 06127) <0.10 KU/L A. ALTERNATA IgE (test code = 95164) <0.10 KU/L [place] IgE (test code = 39732) <0.10 KU/L [place] IgE (test code = 24719) <0.10 KU/L PECAN/HICKORY TREE IgE (test code = 41887) <0.10 KU/L [place] IgE (test cod e = 79341) <0.10 KU/L [place], RUSSIAN IgE (test code = 41311) <0.10 KU/L RAGWEED, COMMON IgE (test co de = 85641) <0.10 KU/L YBARRA'S QUARTER IgE (test cod e = 80181) <0.10 KU/L [place] THISTLE IgE (test co de = 67563) <0.10 KU/L PIGWEED/CARELESS IgE (test c ode = 93118) <0.10 KU/L MARSHELDER, ROUGH IgE (test code = 12497) <0.10 KU/L RAGWEED, FALSE IgE (test cod e = 11511) <0.10 KU/L IMMUNOGLOBULIN E (IgE) (test code = 23010) 818 KU/L Jarett SavageCPL ALLERGENS [REFLEX]2022-01-04 00:00:00* Test Item Value Reference Range Interpretation Comme nts INTERPRETATION: (test code = 1989) (NOTE) Jarett SavagePEDIATRIC FOOD IgE PANEL WITH [id number] 00:00:00* Test Item Value Reference Range Interpretation Comme nts SOYBEAN IgE (test code = 26054) <0.10 KU/L SOYBEAN CLASS (test code = 73102) PECAN NUT IgE (test code = 91698) <0.10 KU/L PECAN NUT CLASS (test code = 99760) WHEAT IgE (test code = 84535) <0.10 KU/L WHEAT CLASS (test code = 54319) OAT IgE (test code = 53442) <0.10 KU/L OAT CLASS (test code = 10811) EGG YOLK IgE (test code = 20415) <0.10 KU/L EGG YOLK CLASS (test code = 24106) CORN IgE (test code = 61387) <0.10 KU/L CORN CLASS (test code = 85781) RICE IgE (test code = 52954) <0.10 KU/L RICE CLASS (test code = 98291) COCOA IgE (test code = 32439) <0.10 KU/L COCOA CLASS (test code = 14409) EGG WHITE IgE (test code = ) 0.14 KU/L EGG WHITE CLASS (test code = ) 0/1 MILK IgE (test code = ) <0.10 KU/L MILK CLASS (test code = ) PEANUT IgE (test code = ) <0.10 KU/L PEANUT CLASS (test code = ) PEDIATRIC AEROALLERGEN IgE PANEL WITH TOTAL [id number] 00:00:00* Test Item Value Reference Range Interpretation Comme nts [place] IgE (test code = 02485) <0.10 KU/L [place] CLASS (test cod e = 91464) D. PTERONYSSINUS IgE (test c ode = 15982) 27.4 KU/L D. PTERONYS. CLASS (test cod e = 79403) 4 D. FARINAE IgE (test code = 57436) 10.90 KU/L D. FARINAE CLASS (test code = 10720) 3 CAT EPITHELIUM IgE (test cod e = 93492) <0.10 KU/L CAT EPITHELIUM CLASS (test c ode = 86082) DOG DANDER IgE (test code = 66655) <0.10 KU/L DOG DANDER CLASS (test code = 54535) RONNI GRASS IgE (test code = 40379) <0.10 KU/L RONNI GRASS CLASS (test co de = 51584) BERMUDA GRASS IgE (test code = 48609) <0.10 KU/L BERMUDA GRASS CLASS (test co de = 33704) PERENNIAL RYE IgE (test code = 16622) <0.10 KU/L PERENNIAL RYE CLASS (test co de = 64479) LUX GRASS IgE (test code = 09547) <0.10 KU/L LUX GRASS CLASS (test co de = 19024) P. CHRYSOGENUM IgE (test cod e = 54860) <0.10 KU/L P. CHRYSOGENUM CLASS (test c ode = 96102) C. LUNATA IgE (test code = 46570) <0.10 KU/L C. LUNATA CLASS (test code = 35037) C. HERBARUM IgE (test code = 79082) <0.10 KU/L C. HERBARUM CLASS (test code = 31891) A. ALTERNATA IgE (test code = 30621) <0.10 KU/L A. ALTERNATA CLASS (test cod e = 68299) [place] IgE (test code = 58888) <0.10 KU/L [place] CLASS (test code = 75766) [place] T[place] IgE (test code = 54120) <0.10 KU/L [place] T[place] CLASS (test co de = 65127) PECAN/HICKORY TREE IgE (test code = 86103) <0.10 KU/L PECAN/HICKORY CLASS (test co de = 51358) [place] IgE (test cod e = 66591) <0.10 KU/L [place] CLASS (test c ode = 19273) [place], RUSSIAN IgE (test code = 15600) <0.10 KU/L [place], RUSSIAN CLASS (test co de = 14808) RAGWEED, COMMON IgE (test co de = 74755) <0.10 KU/L RAGWEED, COMMON CLASS (test code = 85545) YBARRA'S QUARTER IgE (test cod e = 86656) <0.10 KU/L YBARRA'S QUARTER CLASS (test c ode = 19092) [place] THISTLE IgE (test co de = 13157) <0.10 KU/L [place] THISTLE CLASS (test code = 57205) PIGWEED/CARELESS IgE (test c ode = 43151) <0.10 KU/L PIGWEED/CARELESS CLS (test c ode = 48510) MARSHELDER, ROUGH IgE (test code = 69616) <0.10 KU/L MARSHELDER, ROUGH CLASS (coni t code = 84337) RAGWEED, FALSE IgE (test cod e = 97216) <0.10 KU/L RAGWEED, FALSE CLASS (test c ode = 80729) IMMUNOGLOBULIN E (IgE) (test code = 45133) 818 KU/L CPL ALLERGENS [REFLEX]2022-01-04 00:00:00* Test Item Value Reference Range Interpretation Comme nts INTERPRETATION: (test code = 1989) (NOTE) PEDIATRIC FOOD IgE PANEL WITH [id number] 00:00:00* Test Item Value Reference Range Interpretation Comme nts SOYBEAN IgE (test code = 63867) <0.10 KU/L PECAN NUT IgE (test code = 96981) <0.10 KU/L WHEAT IgE (test code = 60501) <0.10 KU/L OAT IgE (test code = 08312) <0.10 KU/L EGG YOLK IgE (test code = 71428) <0.10 KU/L CORN IgE (test code = 87883) <0.10 KU/L RICE IgE (test code = 39027) <0.10 KU/L COCOA IgE (test code = 33842) <0.10 KU/L EGG WHITE IgE (test code = ) 0.14 KU/L EGG WHITE CLASS (test code = ) 0/1 MILK IgE (test code = ) <0.10 KU/L PEANUT IgE (test code = 51974) <0.10 KU/L Jarett Zurita AustinPEDIATRIC AEROALLERGEN IgE PANEL WITH TOTAL [id number] 00:00:00* Test Item Value Reference Range Interpretation Comme [facility] [place], [place] IgE (test code = 54291) <0.10 KU/L D. PTERONYSSINUS IgE (test c ode = 49504) 27.4 KU/L D. PTERONYS. CLASS (test cod e = 99213) 4 D. FARINAE IgE (test code = 47202) 10.90 KU/L D. FARINAE CLASS (test code = 86916) 3 CAT EPITHELIUM IgE (test cod e = 01497) <0.10 KU/L DOG DANDER IgE (test code = 36714) <0.10 KU/L RONNI GRASS IgE (test code = 72085) <0.10 KU/L BERMUDA GRASS IgE (test code = 39515) <0.10 KU/L PERENNIAL RYE IgE (test code = 86778) <0.10 KU/L LUX GRASS IgE (test code = 37232) <0.10 KU/L P. CHRYSOGENUM IgE (test cod e = 74886) <0.10 KU/L C. LUNATA IgE (test code = 18295) <0.10 KU/L C. HERBARUM IgE (test code = 05945) <0.10 KU/L A. ALTERNATA IgE (test code = 21872) <0.10 KU/L [place] IgE (test code = 93436) <0.10 KU/L [place] IgE (test code = 36134) <0.10 KU/L PECAN/HICKORY TREE IgE (test code = 92747) <0.10 KU/L [place] IgE (test cod e = 89415) <0.10 KU/L [place], [place]SI[place] IgE (test code = 11981) <0.10 KU/L RAGWEED, COMMON IgE (test co de = 03327) <0.10 KU/L YBARRA'S QUARTER IgE (test cod e = 11182) <0.10 KU/L [place] THISTLE IgE (test co de = 78369) <0.10 KU/L PIGWEED/CARELESS IgE (test c ode = 20820) <0.10 KU/L MARSHELDER, ROUGH IgE (test code = 89692) <0.10 KU/L RAGWEED, FALSE IgE (test cod e = 54294) <0.10 KU/L IMMUNOGLOBULIN E (IgE) (test code = 00711) 818 KU/L Jarett SavageCPL ALLERGENS [REFLEX]2022-01-04 00:00:00* Test Item Value Reference Range Interpretation Comme nts INTERPRETATION: (test code = 1989) (NOTE) Jarett SavagePEDIATRIC FOOD IgE PANEL WITH [id number] 00:00:00* Test Item Value Reference Range Interpretation Comme nts SOYBEAN IgE (test code = 49411) <0.10 KU/L PECAN NUT IgE (test code = 37639) <0.10 KU/L WHEAT IgE (test code = 59887) <0.10 KU/L OAT IgE (test code = 51654) <0.10 KU/L EGG YOLK IgE (test code = 56268) <0.10 KU/L CORN IgE (test code = 66044) <0.10 KU/L RICE IgE (test code = 72625) <0.10 KU/L COCOA IgE (test code = 91624) <0.10 KU/L EGG WHITE IgE (test code = 79345) 0.14 KU/L EGG WHITE CLASS (test code = 08381) 0/1 MILK IgE (test code = ) <0.10 KU/L PEANUT IgE (test code = 30337) <0.10 KU/L [facility] WITH TOTAL [id number] 00:00:00* Test Item Value Reference Range Interpretation Comme nts [place], [place] IgE (test code = 83200) <0.10 KU/L D. PTERONYSSINUS IgE (test c ode = 12684) 27.4 KU/L D. PTERONYS. CLASS (test cod e = 54040) 4 D. FARINAE IgE (test code = 69017) 10.90 KU/L D. FARINAE CLASS (test code = 26934) 3 CAT EPITHELIUM IgE (test cod e = 03821) <0.10 KU/L DOG DANDER IgE (test code = 63135) <0.10 KU/L RONNI GRASS IgE (test code = 28010) <0.10 KU/L BERMUDA GRASS IgE (test code = 66479) <0.10 KU/L PERENNIAL RYE IgE (test code = 96247) <0.10 KU/L LUX GRASS IgE (test code = 99987) <0.10 KU/L P. CHRYSOGENUM IgE (test cod e = 82400) <0.10 KU/L C. LUNATA IgE (test code = 37719) <0.10 KU/L C. HERBARUM IgE (test code = 32740) <0.10 KU/L A. ALTERNATA IgE (test code = 97032) <0.10 KU/L [place] IgE (test code = 31014) <0.10 KU/L MESQU[place] TREE IgE (test code = 61380) <0.10 KU/L PECAN/HICKORY TREE IgE (test code = 61991) <0.10 KU/L [place] IgE (test cod e = 44260) <0.10 KU/L [place], RUSSIAN IgE (test code = 09555) <0.10 KU/L RAGWEED, COMMON IgE (test co de = 90984) <0.10 KU/L YBARRA'S QUARTER IgE (test cod e = 91610) <0.10 KU/L [place] THISTLE IgE (test co de = 53337) <0.10 KU/L PIGWEED/CARELESS IgE (test c ode = 72521) <0.10 KU/L MARSHELDER, ROUGH IgE (test code = 50032) <0.10 KU/L RAGWEED, FALSE IgE (test cod e = 67800) <0.10 KU/L IMMUNOGLOBULIN E (IgE) (test code = 90738) 818 KU/L Jarett Zurita [facility] ALLERGENS [REFLEX]2022-01-04 00:00:00* Test Item Value Reference Range Interpretation Comme nts INTERPRETATION: (test code = 1989) (NOTE) [facility] WITH [id number] 00:00:00* Test Item Value Reference Range Interpretation Comme nts SOYBEAN IgE (test code = 00496) <0.10 KU/L PECAN NUT IgE (test code = 62863) <0.10 KU/L WHEAT IgE (test code = 18404) <0.10 KU/L OAT IgE (test code = 23061) <0.10 KU/L EGG YOLK IgE (test code = 36056) <0.10 KU/L CORN IgE (test code = 01837) <0.10 KU/L RICE IgE (test code = 29949) <0.10 KU/L COCOA IgE (test code = 78906) <0.10 KU/L EGG WHITE IgE (test code = 71200) 0.14 KU/L EGG WHITE CLASS (test code = 36786) 0/1 MILK IgE (test code = 14927) <0.10 KU/L PEANUT IgE (test code = 12667) <0.10 KU/L [facility] WITH TOTAL [id number] 00:00:00* Test Item Value Reference Range Interpretation Comme nts LIVE OAK, MAU IgE (test code = 59378) <0.10 KU/L D. PTERONYSSINUS IgE (test c ode = 23480) 27.4 KU/L D. PTERONYS. CLASS (test cod e = 50020) 4 D. FARINAE IgE (test code = 04914) 10.90 KU/L D. FARINAE CLASS (test code = 67451) 3 CAT EPITHELIUM IgE (test cod e = 76495) <0.10 KU/L DOG DANDER IgE (test code = 28330) <0.10 KU/L RONNI GRASS IgE (test code = 15926) <0.10 KU/L BERMUDA GRASS IgE (test code = 93565) <0.10 KU/L PERENNIAL RYE IgE (test code = 58892) <0.10 KU/L LUX GRASS IgE (test code = 46884) <0.10 KU/L P. CHRYSOGENUM IgE (test cod e = 59521) <0.10 KU/L C. LUNATA IgE (test code = 34563) <0.10 KU/L C. HERBARUM IgE (test code = 59301) <0.10 KU/L A. ALTERNATA IgE (test code = 20056) <0.10 KU/L COTTONWOOD IgE (test code = 56731) <0.10 KU/L MESQUITE TREE IgE (test code = 50460) <0.10 KU/L PECAN/HICKORY TREE IgE (test code = 02837) <0.10 KU/L M[place]AR IgE (test cod e = 51485) <0.10 KU/L ELM, RUSSIAN IgE (test code = 34861) <0.10 KU/L RAGWEED, COMMON IgE (test co de = 03953) <0.10 KU/L YBARRA'S QUARTER IgE (test cod e = 13797) <0.10 KU/L BOT[place] THISTLE IgE (test co de = 75775) <0.10 KU/L PIGWEED/CARELESS IgE (test c ode = 42141) <0.10 KU/L MARSHELDER, ROUGH IgE (test code = 99117) <0.10 KU/L RAGWEED, FALSE IgE (test cod e = 51933) <0.10 KU/L IMMUNOGLOBULIN E (IgE) (test code = 23205) 818 KU/L Jarett SavageCPL ALLERGENS [REFLEX]2022-01-04 00:00:00* Test Item Value Reference Range Interpretation Comme nts INTERPRETATION: (test code = 1989) (NOTE) Jarett SavagePEDIATRIC FOOD IgE PANEL WITH [id number] 00:00:00* Test Item Value Reference Range Interpretation Comme nts SOYBEAN IgE (test code = 21312) <0.10 KU/L PECAN NUT IgE (test code = 24250) <0.10 KU/L WHEAT IgE (test code = 20907) <0.10 KU/L OAT IgE (test code = 94839) <0.10 KU/L EGG YOLK IgE (test code = 43752) <0.10 KU/L CORN IgE (test code = 93223) <0.10 KU/L RICE IgE (test code = ) <0.10 KU/L COCOA IgE (test code = ) <0.10 KU/L EGG WHITE IgE (test code = ) 0.14 KU/L EGG WHITE CLASS (test code = ) 0/1 MILK IgE (test code = ) <0.10 KU/L PEANUT IgE (test code = ) <0.10 KU/L Jarett SavageFOOD ALLERGY IgE PANEL WITH TOTAL [id number] 14:46:49* Test Item Value Reference Range Interpretation Comme nts EGG WHITE IgE (test code = ) <0.10 KU/L <0.35 EGG WHITE CLASS (test code = ) 0 PEANUT IgE (test code = ) <0.10 KU/L <0.10 PEANUT CLASS (test code = ) 0 SOYBEAN IgE (test code = 15613) <0.10 KU/L <0.35 SOYBEAN CLASS (test code = 70261) 0 MILK IgE (test code = 16234) <0.10 KU/L <0.35 MILK CLASS (test code = 23357) 0 CLAM IgE (test code = 51850) <0.10 KU/L <0.35 CLAM CLASS (test code = 75576) 0 SHRIMP IgE (test code = 26625) <0.10 KU/L <0.35 SHRIMP CLASS (test code = 92600) 0 WALNUT IgE (test code = 19669) <0.10 KU/L <0.35 WALNUT CLASS (test code = 28357) 0 COD FISH IgE (test code = 90867) <0.10 KU/L <0.35 COD FISH CLASS (test code = 26212) 0 SCALLOP IgE (test code = 62540) <0.10 KU/L <0.35 SCALLOP CLASS (test code = 21477) 0 WHEAT IgE (test code = 71510) <0.10 KU/L <0.35 WHEAT CLASS (test code = 30561) 0 CORN IgE (test code = 31683) <0.10 KU/L <0.35 CORN CLASS (test code = 00377) 0 SESAME SEED IgE (test code = 79940) <0.10 KU/L <0.35 SESAME SEED CLASS (test code = 81705) 0 IMMUNOGLOBULIN E (IgE) (test code = 65703) 634 KU/L See_Comment H [Automated m essage] The system which generated this result transmitted reference range: <=549. The reference range was not used to interpret this result as normal/abnormal. [facility] [id number] 14:24:12* Test Item Value Reference Range Interpretation Comme nts INTERPRETATION: (test code = 1989) (NOTE) CLASS RANGE( ku/L) INTERPRETATION 0 <0.10 Normal, no specific IgE identified 0/1 0.10-0.34 Equivocal, indeterminate significance 1 0.35-0.69 Low level specific IgE 2 0.70-3.49 Moderate level specific IgE 3 3.50-17.49 High level specific IgE 4 17.50-49.99 Very high levels 5 50.00-99.99 of specific IgE 6 >=100.00 antibodies Note: Test results reflect expanded analytic measurable range. Allergen specific IgE values of 0.10-0.34 kU/L (class 0/1) are of indeterminate significance and may require specific clinical expertise for interpretation. Other than peanut and peanut components, values in this range will not be reported with out of range flagging. Testing performed on [employer] using ImmunoCAP Specific IgE reagents. * If Antibodies are followed by an asterisk (*) they have been developed and their performance characteristics determined by [facility] ([facility]). They have not been cleared or approved by the U.S. Food and Drug Administration (FDA). The FDA has determined that such clearance or approval is not necessary. These assays are intended to be used for clinical purposes. Analyte specific reagents were used. They should not be regarded as investigational or for research. [facility] is regulated under the Clinical Laboratory Improvement Amendments of 1988 (CLIA) as qualified to perform high complexity clinical testing. UNLESS OTHERWISE INDICATED, ALL TESTING PERFORMED [facility] [address] [place] [address] TRUST MANAGER: FRED CARRINGTON M.D. CLIA NUMBER [id number] [place]. [id number] CPL ALLERGENS [REFLEX]2021-12-29 00:00:00* Test Item Value Reference Range Interpretation Comme nts INTERPRETATION: (test code = 1989) (NOTE) Jarett Zurita AustinFOOD ALLERGY IgE PANEL WITH TOTAL [id number] 00:00:00* Test Item Value Reference Range Interpretation Comme nts EGG WHITE IgE (test code = 84102) <0.10 KU/L PEANUT IgE (test code = 45497) <0.10 KU/L SOYBEAN IgE (test code = 01493) <0.10 KU/L MILK IgE (test code = 72346) <0.10 KU/L CLAM IgE (test code = 65521) <0.10 KU/L SHRIMP IgE (test code = 91126) <0.10 KU/L WALNUT IgE (test code = 77466) <0.10 KU/L COD FISH IgE (test code = 68625) <0.10 KU/L SCALLOP IgE (test code = 20602) <0.10 KU/L WHEAT IgE (test code = 93609) <0.10 KU/L CORN IgE (test code = 42727) <0.10 KU/L SESAME SEED IgE (test code = 58690) <0.10 KU/L IMMUNOGLOBULIN E (IgE) (test code = 80478) 634 KU/L Jarett SavageCPL ALLERGENS [REFLEX]2021-12-29 00:00:00* Test Item Value Reference Range Interpretation Comme nts INTERPRETATION: (test code = 1989) (NOTE) Jarett Zurita AustinFOOD ALLERGY IgE PANEL WITH TOTAL [id number] 00:00:00* Test Item Value Reference Range Interpretation Comme nts EGG WHITE IgE (test code = 08964) <0.10 KU/L EGG WHITE CLASS (test code = 64981) PEANUT IgE (test code = 74599) <0.10 KU/L PEANUT CLASS (test code = 12584) SOYBEAN IgE (test code = 07137) <0.10 KU/L SOYBEAN CLASS (test code = 44924) MILK IgE (test code = 38023) <0.10 KU/L MILK CLASS (test code = 97803) CLAM IgE (test code = 73235) <0.10 KU/L CLAM CLASS (test code = 06955) SHRIMP IgE (test code = 76568) <0.10 KU/L SHRIMP CLASS (test code = 05274) WALNUT IgE (test code = 48212) <0.10 KU/L WALNUT CLASS (test code = 98867) COD FISH IgE (test code = 01189) <0.10 KU/L COD FISH CLASS (test code = 26503) SCALLOP IgE (test code = 67416) <0.10 KU/L SCALLOP CLASS (test code = 02246) WHEAT IgE (test code = 63217) <0.10 KU/L WHEAT CLASS (test code = 76914) CORN IgE (test code = 99234) <0.10 KU/L CORN CLASS (test code = 77476) SESAME SEED IgE (test code = 66526) <0.10 KU/L SESAME SEED CLASS (test code = 41998) IMMUNOGLOBULIN E (IgE) (test code = 12047) 634 KU/L CPL ALLERGENS [REFLEX]2021-12-29 00:00:00* Test Item Value Reference Range Interpretation Comme nts INTERPRETATION: (test code = 1989) (NOTE) FOOD ALLERGY IgE PANEL WITH TOTAL [id number] 00:00:00* Test Item Value Reference Range Interpretation Comme nts EGG WHITE IgE (test code = 17210) <0.10 KU/L EGG WHITE CLASS (test code = 63278) PEANUT IgE (test code = 69894) <0.10 KU/L PEANUT CLASS (test code = 02878) SOYBEAN IgE (test code = 96895) <0.10 KU/L SOYBEAN CLASS (test code = 59428) MILK IgE (test code = 92601) <0.10 KU/L MILK CLASS (test code = 68292) CLAM IgE (test code = 70454) <0.10 KU/L CLAM CLASS (test code = 61966) SHRIMP IgE (test code = 13069) <0.10 KU/L SHRIMP CLASS (test code = 90268) WALNUT IgE (test code = 52474) <0.10 KU/L WALNUT CLASS (test code = 25554) COD FISH IgE (test code = 61383) <0.10 KU/L COD FISH CLASS (test code = 09157) SCALLOP IgE (test code = 24891) <0.10 KU/L SCALLOP CLASS (test code = 02862) WHEAT IgE (test code = 05065) <0.10 KU/L WHEAT CLASS (test code = 55788) CORN IgE (test code = 18896) <0.10 KU/L CORN CLASS (test code = 78402) SESAME SEED IgE (test code = 42841) <0.10 KU/L SESAME SEED CLASS (test code = 75833) IMMUNOGLOBULIN E (IgE) (test code = 61996) 634 KU/L CPL ALLERGENS [REFLEX]2021-12-29 00:00:00* Test Item Value Reference Range Interpretation Comme nts INTERPRETATION: (test code = 1989) (NOTE) FOOD ALLERGY IgE PANEL WITH TOTAL [id number] 00:00:00* Test Item Value Reference Range Interpretation Comme nts EGG WHITE IgE (test code = 52448) <0.10 KU/L EGG WHITE CLASS (test code = 34704) PEANUT IgE (test code = 55919) <0.10 KU/L PEANUT CLASS (test code = 28249) SOYBEAN IgE (test code = 00483) <0.10 KU/L SOYBEAN CLASS (test code = 98923) MILK IgE (test code = 90082) <0.10 KU/L MILK CLASS (test code = 40467) CLAM IgE (test code = 62967) <0.10 KU/L CLAM CLASS (test code = 13557) SHRIMP IgE (test code = 11942) <0.10 KU/L SHRIMP CLASS (test code = 67780) WALNUT IgE (test code = 90997) <0.10 KU/L WALNUT CLASS (test code = 19151) COD FISH IgE (test code = 66603) <0.10 KU/L COD FISH CLASS (test code = 77789) SCALLOP IgE (test code = 78131) <0.10 KU/L SCALLOP CLASS (test code = 00181) WHEAT IgE (test code = 01730) <0.10 KU/L WHEAT CLASS (test code = 85696) CORN IgE (test code = 32401) <0.10 KU/L CORN CLASS (test code = 74824) SESAME SEED IgE (test code = 55228) <0.10 KU/L SESAME SEED CLASS (test code = 31832) IMMUNOGLOBULIN E (IgE) (test code = 74131) 634 KU/L CPL ALLERGENS [REFLEX]2021-12-29 00:00:00* Test Item Value Reference Range Interpretation Comme nts INTERPRETATION: (test code = 1989) (NOTE) FOOD ALLERGY IgE PANEL WITH TOTAL [id number] 00:00:00* Test Item Value Reference Range Interpretation Comme nts EGG WHITE IgE (test code = 46330) <0.10 KU/L PEANUT IgE (test code = 44350) <0.10 KU/L SOYBEAN IgE (test code = 52207) <0.10 KU/L MILK IgE (test code = 36320) <0.10 KU/L CLAM IgE (test code = 84892) <0.10 KU/L SHRIMP IgE (test code = 53693) <0.10 KU/L WALNUT IgE (test code = 84914) <0.10 KU/L COD FISH IgE (test code = 70311) <0.10 KU/L SCALLOP IgE (test code = 90136) <0.10 KU/L WHEAT IgE (test code = 84025) <0.10 KU/L CORN IgE (test code = 68907) <0.10 KU/L SESAME SEED IgE (test code = 08890) <0.10 KU/L IMMUNOGLOBULIN E (IgE) (test code = 25823) 634 KU/L Jarett SavageCPL ALLERGENS [REFLEX]2021-12-29 00:00:00* Test Item Value Reference Range Interpretation Comme nts INTERPRETATION: (test code = 1989) (NOTE) Jarett F AustinFOOD ALLERGY IgE PANEL WITH TOTAL [id number] 00:00:00* Test Item Value Reference Range Interpretation Comme nts EGG WHITE IgE (test code = 75341) <0.10 KU/L PEANUT IgE (test code = 02922) <0.10 KU/L SOYBEAN IgE (test code = 54587) <0.10 KU/L MILK IgE (test code = 85062) <0.10 KU/L CLAM IgE (test code = 15822) <0.10 KU/L SHRIMP IgE (test code = 13779) <0.10 KU/L WALNUT IgE (test code = 12848) <0.10 KU/L COD FISH IgE (test code = 35708) <0.10 KU/L SCALLOP IgE (test code = 54112) <0.10 KU/L WHEAT IgE (test code = 76312) <0.10 KU/L CORN IgE (test code = 45761) <0.10 KU/L SESAME SEED IgE (test code = 60301) <0.10 KU/L IMMUNOGLOBULIN E (IgE) (test code = 36890) 634 KU/L Jarett Yudith AustinCPL ALLERGENS [REFLEX]2021-12-29 00:00:00* Test Item Value Reference Range Interpretation Comme nts INTERPRETATION: (test code = 1989) (NOTE) Jarett Zurita AustinFOOD ALLERGY IgE PANEL WITH TOTAL [id number] 00:00:00* Test Item Value Reference Range Interpretation Comme nts EGG WHITE IgE (test code = 27254) <0.10 KU/L PEANUT IgE (test code = 06335) <0.10 KU/L SOYBEAN IgE (test code = 98990) <0.10 KU/L MILK IgE (test code = 65837) <0.10 KU/L CLAM IgE (test code = 64074) <0.10 KU/L SHRIMP IgE (test code = 72645) <0.10 KU/L WALNUT IgE (test code = 97014) <0.10 KU/L COD FISH IgE (test code = 65357) <0.10 KU/L SCALLOP IgE (test code = 01449) <0.10 KU/L WHEAT IgE (test code = 82151) <0.10 KU/L CORN IgE (test code = 88462) <0.10 KU/L SESAME SEED IgE (test code = 23522) <0.10 KU/L IMMUNOGLOBULIN E (IgE) (test code = 73154) 634 KU/L Jartet F AustinCPL ALLERGENS [REFLEX]2021-12-29 00:00:00* Test Item Value Reference Range Interpretation Comme nts INTERPRETATION: (test code = 1989) (NOTE) Jarett Zurita AustinFOOD ALLERGY IgE PANEL WITH TOTAL [id number] 00:00:00* Test Item Value Reference Range Interpretation Comme nts EGG WHITE IgE (test code = 34381) <0.10 KU/L PEANUT IgE (test code = 64815) <0.10 KU/L SOYBEAN IgE (test code = 87231) <0.10 KU/L MILK IgE (test code = 87116) <0.10 KU/L CLAM IgE (test code = 35199) <0.10 KU/L SHRIMP IgE (test code = 78401) <0.10 KU/L WALNUT IgE (test code = 82032) <0.10 KU/L COD FISH IgE (test code = 31844) <0.10 KU/L SCALLOP IgE (test code = 78609) <0.10 KU/L WHEAT IgE (test code = 45216) <0.10 KU/L CORN IgE (test code = 68068) <0.10 KU/L SESAME SEED IgE (test code = 52999) <0.10 KU/L IMMUNOGLOBULIN E (IgE) (test code = 55453) 634 KU/L Jarett Zurita HusseinH. PYLORI (BREATH), [id number] 14:55:53* Test Item Value Reference Range Interpretation Comme nts H. PYLORI (BREATH) (test code = 85645) POSITIVE NEGATIVE A PATIENT HEIGHT (test code = 95025) 62 INCHES PATIENT WEIGHT (test code = 57689) 136 LBS Methodology is i nfrared spectroscopy for carbon isotopes before andafter Pranactin-Citric solution. For pediatric patients (3-17 years),raw change from baseline (delta over baseline) is corrected forheight, weight, age, and gender using pediatric urea hydrolysiscalculator at [email or web address]. UNLESS OTHERWISE INDICATED, ALL TESTING PERFORMED [facility] [address] [place] [address] TRUST MANAGER: FRED CARRINGTON M.D. CLIA NUMBER [id number] [place]. [id number] H. PYLORI (BREATH), PEDI [ADDED]2021-12-22 00:00:00* Test Item Value Reference Range Interpretation Comme nts H. PYLORI (BREATH) (test cod e = 60349) POSITIVE PATIENT HEIGHT (test code = 65191) 62 INCHES PATIENT WEIGHT (test code = 43307) 136 LBS Jarett Yudith HusseinH. PYLORI (BREATH), PEDI [ADDED]2021-12-22 00:00:00* Test Item Value Reference Range Interpretation Comme nts H. PYLORI (BREATH) (test cod e = 83841) POSITIVE PATIENT HEIGHT (test code = 39692) 62 INCHES PATIENT WEIGHT (test code = 12034) 136 LBS Jarett F AustinH. PYLORI (BREATH), PEDI [ADDED]2021-12-22 00:00:00* Test Item Value Reference Range Interpretation Comme nts H. PYLORI (BREATH) (test cod e = 49021) POSITIVE PATIENT HEIGHT (test code = 23044) 62 INCHES PATIENT WEIGHT (test code = 87241) 136 LBS H. PYLORI (BREATH), PEDI [ADDED]2021-12-22 00:00:00* Test Item Value Reference Range Interpretation Comme nts H. PYLORI (BREATH) (test cod e = 70748) POSITIVE PATIENT HEIGHT (test code = 21258) 62 INCHES PATIENT WEIGHT (test code = 39174) 136 LBS H. PYLORI (BREATH), PEDI [ADDED]2021-12-22 00:00:00* Test Item Value Reference Range Interpretation Comme nts H. PYLORI (BREATH) (test cod e = 72176) POSITIVE PATIENT HEIGHT (test code = 89191) 62 INCHES PATIENT WEIGHT (test code = 02221) 136 LBS H. PYLORI (BREATH), PEDI [ADDED]2021-12-22 00:00:00* Test Item Value Reference Range Interpretation Comme nts H. PYLORI (BREATH) (test cod e = 05330) POSITIVE PATIENT HEIGHT (test code = 48297) 62 INCHES PATIENT WEIGHT (test code = 99647) 136 LBS Jarett F AustinH. PYLORI (BREATH), PEDI [ADDED]2021-12-22 00:00:00* Test Item Value Reference Range Interpretation Comme nts H. PYLORI (BREATH) (test cod e = 30364) POSITIVE PATIENT HEIGHT (test code = 39196) 62 INCHES PATIENT WEIGHT (test code = 72139) 136 LBS Jarett F AustinH. PYLORI (BREATH), PEDI [ADDED]2021-12-22 00:00:00* Test Item Value Reference Range Interpretation Comme nts H. PYLORI (BREATH) (test cod e = 07717) POSITIVE PATIENT HEIGHT (test code = 12947) 62 INCHES PATIENT WEIGHT (test code = 18515) 136 LBS Jarett SavageH. PYLORI (BREATH)2021-12-19 08:15:52* Test Item Value Reference Range Interpretation Comme nts H. PYLORI (BREATH) (test code = 13348) TEST NOT PERFORMED NEGATIVE UNABLE TO PER FORM TESTING DUE TO RECEIPT OF IMPROPER SPECIMEN. CHARGES DELETED. FOOD ALLERGY IgE PANEL WITH TOTAL [id number] 20:05:29* Test Item Value Reference Range Interpretation Comme nts EGG WHITE IgE (test code = 07927) <0.10 KU/L <0.35 EGG WHITE CLASS (test code = 66111) 0 PEANUT IgE (test code = 93116) <0.10 KU/L <0.10 PEANUT CLASS (test code = 73352) 0 SOYBEAN IgE (test code = 72300) <0.10 KU/L <0.35 SOYBEAN CLASS (test code = 06203) 0 MILK IgE (test code = 34777) <0.10 KU/L <0.35 MILK CLASS (test code = 18536) 0 CLAM IgE (test code = 06343) <0.10 KU/L <0.35 CLAM CLASS (test code = 32418) 0 SHRIMP IgE (test code = 18990) 0.10 KU/L <0.35 SHRIMP CLASS (test code = 62966) 0/1 WALNUT IgE (test code = 40198) <0.10 KU/L <0.35 WALNUT CLASS (test code = 50125) 0 COD FISH IgE (test code = 51972) <0.10 KU/L <0.35 COD FISH CLASS (test code = 59192) 0 SCALLOP IgE (test code = 12812) <0.10 KU/L <0.35 SCALLOP CLASS (test code = 39404) 0 WHEAT IgE (test code = 90388) <0.10 KU/L <0.35 WHEAT CLASS (test code = 98346) 0 CORN IgE (test code = 62702) <0.10 KU/L <0.35 CORN CLASS (test code = 05169) 0 SESAME SEED IgE (test code = 06781) <0.10 KU/L <0.35 SESAME SEED CLASS (test code = 41688) 0 IMMUNOGLOBULIN E (IgE) (test code = 15829) 809 KU/L See_Comment H [Automated m essage] The system which generated this result transmitted reference range: <=549. The reference range was not used to interpret this result as normal/abnormal. [facility] [id number] 18:14:31* Test Item Value Reference Range Interpretation Comme nts INTERPRETATION: (test code = 1990) (NOTE) CLASS RANGE(k u/L) INTERPRETATION 0 <0.10 Normal, no specific IgE identified 0/1 0.10-0.34 Equivocal, indeterminate significance 1 0.35-0.69 Low level specific IgE 2 0.70-3.49 Moderate level specific IgE 3 3.50-17.49 High level specific IgE 4 17.50-49.99 Very high levels 5 50.00-99.99 of specific IgE 6 >=100.00 antibodies Note: Test results reflect expanded analytic measurable range. Allergen specific IgE values of 0.10-0.34 kU/L (class 0/1) are of indeterminate significance and may require specific clinical expertise for interpretation. Other than peanut and peanut components, values in this range will not be reported with out of range flagging. Testing performed on [employer] using ImmunoCAP Specific IgE reagents. * If Antibodies are followed by an asterisk (*) they have been developed and their performance characteristics determined by [facility] ([facility]). They have not been cleared or approved by the U.S. Food and Drug Administration (FDA). The FDA has determined that such clearance or approval is not necessary. These assays are intended to be used for clinical purposes. Analyte specific reagents were used. They should not be regarded as investigational or for research. [facility] is regulated under the Clinical Laboratory Improvement Amendments of 1988 (CLIA) as qualified to perform high complexity clinical testing. UNLESS OTHERWISE INDICATED, ALL TESTING PERFORMED [facility] [address] [place] [address] TRUST MANAGER: FRED CARRINGTON M.D. CLIA NUMBER [id number] [place]. [id number] TSH, THIRD [id number] 06:48:12* Test Item Value Reference Range Interpretation Comme nts TSH, THIRD GENERATION (test code = 2821) 0.938 UIU/ML 0.500-4.300 HEMOGLOBIN [id number] 05:26:13* Test Item Value Reference Range Interpretation Comme nts HEMOGLOBIN A1c (test code = 94085) 5.3 % 4.2-5.6 COMPREHENSIVE METABOLIC [id number] 05:11:12* Test Item Value Reference Range Interpretation Comme nts GLUCOSE (test code = 2217) 94 MG/DL 70-99 BUN (test code = 220) 6 MG/DL 5-18 CREATININE (test code = 2214) 0.66 MG/DL 0.50-1.10 eGFR (2020 CKD-EPI) (test code = 09474) NO CALC ML/MIN/1.73 >60 NOTE: 2020 CKD-EPI is not validated for pediatric populations. For patients less than 19 years old, consider [facility] pediatric eGFR calculator [email or web address] CALC BUN/CREAT (test code = 223) 9 RATIO 6-28 SODIUM (test code = 223) 142 MEQ/L 133-146 POTASSIUM (test code = 222) 4.1 MEQ/L 3.5-5.4 CHLORIDE (test code = 2215) 108 MEQ/L 95-107 H CARBON DIOXIDE (test code = 2206) 21 MEQ/L 19-31 CALCIUM (test code = 2209) 9.6 MG/DL 8.4-10.2 PROTEIN, TOTAL (test code = 2229) 7.7 G/DL 6.0-8.0 ALBUMIN (test code = 220) 4.6 G/DL 3.6-5.2 CALC GLOBULIN (test code = 2240) 3.1 G/DL 2.1-3.7 CALC A/G RATIO (test code = 2234) 1.5 RATIO 1.0-2.6 BILIRUBIN, TOTAL (test code = 2207) 0.4 MG/DL See_Comment [Automated me ssage] The system which generated this result transmitted reference range: <=1.2. The reference range was not used to interpret this result as normal/abnormal. ALKALINE PHOSPHATASE (test code = 2204) 87 U/L 53-138 AST (test code = 2218) 19 U/L 9-48 ALT (test code = 2219) 15 U/L 5-45 LIPID [id number] 05:11:12* Test Item Value Reference Range Interpretation Comme nts CHOLESTEROL (test code = 2210) 125 MG/DL <170 TRIGLYCERIDES (test code = 2232) 79 MG/DL <90 HDL CHOLESTEROL (test code = 2220) 40 MG/DL >45 L CALC LDL CHOL (test code = 2237) 69 MG/DL <110 NOTE: CALCULATED LDL IS BASED ON RUEL-STOVALL METHOD WHICHINCLUDES ADJUSTABLE TRIGLYCERIDE:VLDL CHOLESTEROL RATIO.THIS FACTOR VARIES BY MEASURED TRIGLYCERIDE AND NON-HDLCHOLESTEROL CONCENTRATIONS WITH INCREASED CALCULATED LDL SEENIN HIGHER TRIGLYCERIDE OR LOWER NON-HDL SPECIMENS. FOR MOREINFORMATION, SEE CLIENT ANNOUNCEMENT AT [email or web address] [email or web address] RATIO LDL/HDL (test code = 2238) 1.73 RATIO <3.22 VITAMIN D, 25 [id number] 04:44:27* Test Item Value Reference Range Interpretation Comme [facility] VITAMIN D, 25 OH (test code = 4958) 15 NG/ML SEE BELOW L NOTE: 25-HYDR OXYVITAMIN D ASSAY INCLUDES 25-HYDROXYVITAMIN D2 AND D3. METHODOLOGY IS CHEMILUMINESCENT IMMUNOASSAY. INTERPRETIVE RANGES PEDIATRIC (<17 YEARS) . . . . . . . . . . . NG/ML 20-100ADULT: INSUFFICIENT . . . . . . . . . . . . . . NG/ML <20 SUBOPTIMAL . . . . . . . . . . . . . . . NG/ML 20-29 OPTIMAL . . . . . . . . . . . . . . . . . NG/ML 30-100 [id number] 04:32:12* Test Item Value Reference Range Interpretation Comme [facility] LIPASE (test code = 2058) 46 U/L 13-60 CBC W/AUTO DIFF WITH [id number] 02:16:51* Test Item Value Reference Range Interpretation Comme [facility] WBC (test code = 1001) 9.7 K/UL 3.5-11.0 RBC (test code = 1002) 4.66 M/UL 4.00-5.40 HEMOGLOBIN (test code = 1003) 13.6 G/DL 11.0-15.5 HEMATOCRIT (test code = 1004) 41.6 % 33.0-45.0 MCV (test code = 1005) 89.3 fL 78.0-95.0 MCH (test code = 1006) 29.2 PG 24.0-33.0 MCHC (test code = 1007) 32.7 G/DL 31.0-36.0 RDW (test code = 1038) 11.8 % 11.5-15.0 NEUTROPHILS (test code = 1008) 68.6 % LYMPHOCYTES (test code = 1010) 21.8 % MONOCYTES (test code = 1011) 8.3 % EOSINOPHILS (test code = 1012) 0.8 % BASOPHILS (test code = 1013) 0.2 % IMMATURE GRANULOCYTES (test code = 1036) 0.3 % NUCLEATED RBCS (test code = 1065) 0.0 /100 WBC'S See_Comment [Automated messa ge] The system which generated this result transmitted reference range: 0.0. The reference range was not used to interpret this result as normal/abnormal. PLATELET COUNT (test code = 1015) 313 K/UL 150-450 ABSOLUTE NEUTROPHILS (test code = 1066) 6.62 K/UL 1.50-7.50 ABSOLUTE LYMPHOCYTES (test code = 1067) 2.10 K/UL 1.20-4.00 ABSOLUTE MONOCYTES (test code = 1068) 0.80 K/UL 0.10-0.90 ABSOLUTE EOSINOPHILS (test code = 1040) 0.08 K/UL 0.00-0.50 ABSOLUTE BASOPHILS (test code = 1069) 0.02 K/UL 0.00-0.10 ABS IMMATURE GRANULOCYTES (test code = 1020) 0.03 K/UL 0.00-0.10 ABS NUCLEATED RBCS (test code = 27875) 0.00 K/UL 0.00-0.13 GC AND CHLAMYDIA, AMPLIFIED, [id number] 00:00:00* Test Item Value Reference Range Interpretation Comme nts GONORRHEA, NAAT (test code = 98682) NEGATIVE CHLAMYDIA, NAAT (test code = 25752) NEGATIVE Jarett F AustinGC AND CHLAMYDIA, AMPLIFIED, [id number] 00:00:00* Test Item Value Reference Range Interpretation Comme nts GONORRHEA, NAAT (test code = 82511) NEGATIVE CHLAMYDIA, NAAT (test code = 92234) NEGATIVE Jarett F AustinGC AND CHLAMYDIA, AMPLIFIED, [id number] 00:00:00* Test Item Value Reference Range Interpretation Comme nts GONORRHEA, NAAT (test code = 29753) NEGATIVE CHLAMYDIA, NAAT (test code = 40766) NEGATIVE GC AND CHLAMYDIA, AMPLIFIED, [id number] 00:00:00* Test Item Value Reference Range Interpretation Comme nts GONORRHEA, NAAT (test code = 24386) NEGATIVE CHLAMYDIA, NAAT (test code = 29670) NEGATIVE GC AND CHLAMYDIA, AMPLIFIED, [id number] 00:00:00* Test Item Value Reference Range Interpretation Comme nts GONORRHEA, NAAT (test code = 66883) NEGATIVE CHLAMYDIA, NAAT (test code = 78494) NEGATIVE GC AND CHLAMYDIA, AMPLIFIED, [id number] 00:00:00* Test Item Value Reference Range Interpretation Comme nts GONORRHEA, NAAT (test code = 64938) NEGATIVE CHLAMYDIA, NAAT (test code = 91916) NEGATIVE GC AND CHLAMYDIA, AMPLIFIED, [id number] 00:00:00* Test Item Value Reference Range Interpretation Comme nts GONORRHEA, NAAT (test code = 95450) NEGATIVE CHLAMYDIA, NAAT (test code = 15148) NEGATIVE GC AND CHLAMYDIA, AMPLIFIED, [id number] 00:00:00* Test Item Value Reference Range Interpretation Comme nts GONORRHEA, NAAT (test code = 79559) NEGATIVE CHLAMYDIA, NAAT (test code = 33279) NEGATIVE Jarett F AustinGC AND CHLAMYDIA, AMPLIFIED, [id number] 00:00:00* Test Item Value Reference Range Interpretation Comme nts GONORRHEA, NAAT (test code = 34195) NEGATIVE CHLAMYDIA, NAAT (test code = 33800) NEGATIVE Jarett F AustinGC AND CHLAMYDIA, AMPLIFIED, [id number] 00:00:00* Test Item Value Reference Range Interpretation Comme nts GONORRHEA, NAAT (test code = 08788) NEGATIVE CHLAMYDIA, NAAT (test code = 71684) NEGATIVE Jarett F AustinHERPES SIMPLEX CULTURE AND [id number] 00:00:00* Test Item Value Reference Range Interpretation Comme nts SPECIMEN SOURCE (test code = 37817) VAGINAL LESION HERPES CULTURE (test code = 3533) NEGATIVE HERPES SIMPLEX TYPE I (test code = 29157) TEST NOT PERFORMED HERPES SIMPLEX TYPE II (test code = 10950) TEST NOT PERFORMED Jarett F AustinHERPES SIMPLEX CULTURE AND [id number] 00:00:00* Test Item Value Reference Range Interpretation Comme nts SPECIMEN SOURCE (test code = 32064) VAGINAL LESION HERPES CULTURE (test code = 3533) NEGATIVE HERPES SIMPLEX TYPE I (test code = 52348) TEST NOT PERFORMED HERPES SIMPLEX TYPE II (test code = 77804) TEST NOT PERFORMED HERPES SIMPLEX CULTURE AND [id number] 00:00:00* Test Item Value Reference Range Interpretation Comme nts SPECIMEN SOURCE (test code = 86458) VAGINAL LESION HERPES CULTURE (test code = 3533) NEGATIVE HERPES SIMPLEX TYPE I (test code = 95958) TEST NOT PERFORMED HERPES SIMPLEX TYPE II (test code = 22772) TEST NOT PERFORMED HERPES SIMPLEX CULTURE AND [id number] 00:00:00* Test Item Value Reference Range Interpretation Comme nts SPECIMEN SOURCE (test code = 35598) VAGINAL LESION HERPES CULTURE (test code = 3533) NEGATIVE HERPES SIMPLEX TYPE I (test code = 27039) TEST NOT PERFORMED HERPES SIMPLEX TYPE II (test code = 17484) TEST NOT PERFORMED HERPES SIMPLEX CULTURE AND [id number] 00:00:00* Test Item Value Reference Range Interpretation Comme nts SPECIMEN SOURCE (test code = 33149) VAGINAL LESION HERPES CULTURE (test code = 3533) NEGATIVE HERPES SIMPLEX TYPE I (test code = 15931) TEST NOT PERFORMED HERPES SIMPLEX TYPE II (test code = 07131) TEST NOT PERFORMED HERPES SIMPLEX CULTURE AND [id number] 00:00:00* Test Item Value Reference Range Interpretation Comme nts SPECIMEN SOURCE (test code = 38216) VAGINAL LESION HERPES CULTURE (test code = 3533) NEGATIVE HERPES SIMPLEX TYPE I (test code = 92182) TEST NOT PERFORMED HERPES SIMPLEX TYPE II (test code = 06815) TEST NOT PERFORMED HERPES SIMPLEX CULTURE AND [id number] 00:00:00* Test Item Value Reference Range Interpretation Comme nts SPECIMEN SOURCE (test code = 00484) VAGINAL LESION HERPES CULTURE (test code = 3533) NEGATIVE HERPES SIMPLEX TYPE I (test code = 53153) TEST NOT PERFORMED HERPES SIMPLEX TYPE II (test code = 87643) TEST NOT PERFORMED Jarett F AustinHERPES SIMPLEX CULTURE AND [id number] 00:00:00* Test Item Value Reference Range Interpretation Comme nts SPECIMEN SOURCE (test code = 19919) VAGINAL LESION HERPES CULTURE (test code = 3533) NEGATIVE HERPES SIMPLEX TYPE I (test code = 46364) TEST NOT PERFORMED HERPES SIMPLEX TYPE II (test code = 18469) TEST NOT PERFORMED Jarett SavageHERPES SIMPLEX CULTURE AND [id number] 00:00:00* Test Item Value Reference Range Interpretation Comme nts SPECIMEN SOURCE (test code = 29159) VAGINAL LESION HERPES CULTURE (test code = 3533) NEGATIVE HERPES SIMPLEX TYPE I (test code = 75197) TEST NOT PERFORMED HERPES SIMPLEX TYPE II (test code = 50356) TEST NOT PERFORMED Jarett SavageHERPES SIMPLEX CULTURE AND [id number] 00:00:00* Test Item Value Reference Range Interpretation Comme nts SPECIMEN SOURCE (test code = 41537) VAGINAL LESION HERPES CULTURE (test code = 3533) NEGATIVE HERPES SIMPLEX TYPE I (test code = 26640) TEST NOT PERFORMED HERPES SIMPLEX TYPE II (test code = 58091) TEST NOT PERFORMED Jarett SavageHIV AB/AG COMBO RFLX [id number] 00:00:00* Test Item Value Reference Range Interpretation Comme nts HIV 1/2 4TH GEN, RFLX CONF ( test code = 3514) NON-REACTIVE Jarett SavageVAGINAL PATHOGENS DNA [id number] 00:00:00* Test Item Value Reference Range Interpretation Comme nts SILVIA SPECIES (test code = 74714) NEGATIVE G. VAGINALIS (test code = 27699) NEGATIVE T. VAGINALIS (test code = 83620) NEGATIVE Jarett SavageACUTE HEPATITIS [id number] 00:00:00* Test Item Value Reference Range Interpretation Comme nts HEPATITIS A IgM (test code = 85181) NON-REACTIVE HEPATITIS B CORE IgM (test c ode = 4644) NON-REACTIVE HEPATITIS B SURF AG (test co de = 2739) NON-REACTIVE HEPATITIS C ANTIBODY (test c ode = 4631) NON-REACTIVE INTERPRETATION HEPATITIS A: (test code = 2552) (NOTE) INTERPRETATION HEPATITIS B: (test code = 32595) (NOTE) INTERPRETATION HEPATITIS C: (test code = 80317) (NOTE) Jarett [id number] 00:00:00* Test Item Value Reference Range Interpretation Comme nts RPR RESULT (test code = 3501) NON-REACTIVE RPR TITER (test code = 3500) NOT INDIC. TITER Jarett SavageHIV AB/AG COMBO RFLX [id number] 00:00:00* Test Item Value Reference Range Interpretation Comme nts HIV 1/2 4TH GEN, RFLX CONF ( test code = 3514) NON-REACTIVE Jarett Zurita AustinVAGINAL PATHOGENS DNA [id number] 00:00:00* Test Item Value Reference Range Interpretation Comme nts SILVIA SPECIES (test code = ) NEGATIVE G. VAGINALIS (test code = 20259) NEGATIVE T. VAGINALIS (test code = 77228) NEGATIVE Jarett SavageACUTE HEPATITIS [id number] 00:00:00* Test Item Value Reference Range Interpretation Comme nts HEPATITIS A IgM (test code = 98280) NON-REACTIVE HEPATITIS B CORE IgM (test c ode = 4644) NON-REACTIVE HEPATITIS B SURF AG (test co de = 2739) NON-REACTIVE HEPATITIS C ANTIBODY (test c ode = 4675) NON-REACTIVE INTERPRETATION HEPATITIS A: (test code = 2552) (NOTE) INTERPRETATION HEPATITIS B: (test code = 37038) (NOTE) INTERPRETATION HEPATITIS C: (test code = 25681) (NOTE) Jarett [id number] 00:00:00* Test Item Value Reference Range Interpretation Comme nts RPR RESULT (test code = 3501) NON-REACTIVE RPR TITER (test code = 3500) NOT INDIC. TITER Jarett SavageHIV AB/AG COMBO RFLX [id number] 00:00:00* Test Item Value Reference Range Interpretation Comme nts HIV 1/2 4TH GEN, RFLX CONF ( test code = 3514) NON-REACTIVE VAGINAL PATHOGENS DNA [id number] 00:00:00* Test Item Value Reference Range Interpretation Comme nts SILVIA SPECIES (test code = ) NEGATIVE G. VAGINALIS (test code = 56542) NEGATIVE T. VAGINALIS (test code = 45627) NEGATIVE ACUTE HEPATITIS [id number] 00:00:00* Test Item Value Reference Range Interpretation Comme nts HEPATITIS A IgM (test code = 40333) NON-REACTIVE HEPATITIS B CORE IgM (test c ode = 4644) NON-REACTIVE HEPATITIS B SURF AG (test co de = 2739) NON-REACTIVE HEPATITIS C ANTIBODY (test c ode = 4675) NON-REACTIVE INTERPRETATION HEPATITIS A: (test code = 2552) (NOTE) INTERPRETATION HEPATITIS B: (test code = 18969) (NOTE) INTERPRETATION HEPATITIS C: (test code = 23526) (NOTE) [id number] 00:00:00* Test Item Value Reference Range Interpretation Comme nts RPR RESULT (test code = 3501) NON-REACTIVE RPR TITER (test code = 3500) NOT INDIC. TITER HIV AB/AG COMBO RFLX [id number] 00:00:00* Test Item Value Reference Range Interpretation Comme nts HIV 1/2 4TH GEN, RFLX CONF ( test code = 3514) NON-REACTIVE VAGINAL PATHOGENS DNA [id number] 00:00:00* Test Item Value Reference Range Interpretation Comme nts SILVIA SPECIES (test code = 74339) NEGATIVE G. VAGINALIS (test code = 69761) NEGATIVE T. VAGINALIS (test code = 58952) NEGATIVE ACUTE HEPATITIS [id number] 00:00:00* Test Item Value Reference Range Interpretation Comme nts HEPATITIS A IgM (test code = 68329) NON-REACTIVE HEPATITIS B CORE IgM (test c ode = 4644) NON-REACTIVE HEPATITIS B SURF AG (test co de = 2739) NON-REACTIVE HEPATITIS C ANTIBODY (test c ode = 4675) NON-REACTIVE INTERPRETATION HEPATITIS A: (test code = 2552) (NOTE) INTERPRETATION HEPATITIS B: (test code = 82280) (NOTE) INTERPRETATION HEPATITIS C: (test code = 21509) (NOTE) [id number] 00:00:00* Test Item Value Reference Range Interpretation Comme nts RPR RESULT (test code = 3501) NON-REACTIVE RPR TITER (test code = 3500) NOT INDIC. TITER HIV AB/AG COMBO RFLX [id number] 00:00:00* Test Item Value Reference Range Interpretation Comme nts HIV 1/2 4TH GEN, RFLX CONF ( test code = 3514) NON-REACTIVE VAGINAL PATHOGENS DNA [id number] 00:00:00* Test Item Value Reference Range Interpretation Comme nts SILVIA SPECIES (test code = ) NEGATIVE G. VAGINALIS (test code = 24825) NEGATIVE T. VAGINALIS (test code = 75726) NEGATIVE HIV AB/AG COMBO RFLX [id number] 00:00:00* Test Item Value Reference Range Interpretation Comme nts HIV 1/2 4TH GEN, RFLX CONF ( test code = 3514) NON-REACTIVE VAGINAL PATHOGENS DNA [id number] 00:00:00* Test Item Value Reference Range Interpretation Comme nts SILVIA SPECIES (test code = 57987) NEGATIVE G. VAGINALIS (test code = 87295) NEGATIVE T. VAGINALIS (test code = 70896) NEGATIVE ACUTE HEPATITIS [id number] 00:00:00* Test Item Value Reference Range Interpretation Comme nts HEPATITIS A IgM (test code = 49525) NON-REACTIVE HEPATITIS B CORE IgM (test c ode = 4644) NON-REACTIVE HEPATITIS B SURF AG (test co de = 2739) NON-REACTIVE HEPATITIS C ANTIBODY (test c ode = 4675) NON-REACTIVE INTERPRETATION HEPATITIS A: (test code = 2552) (NOTE) INTERPRETATION HEPATITIS B: (test code = 95581) (NOTE) INTERPRETATION HEPATITIS C: (test code = 34907) (NOTE) [id number] 00:00:00* Test Item Value Reference Range Interpretation Comme nts RPR RESULT (test code = 3501) NON-REACTIVE RPR TITER (test code = 3500) NOT INDIC. TITER ACUTE HEPATITIS [id number] 00:00:00* Test Item Value Reference Range Interpretation Comme nts HEPATITIS A IgM (test code = 42846) NON-REACTIVE HEPATITIS B CORE IgM (test c ode = 4644) NON-REACTIVE HEPATITIS B SURF AG (test co de = 2739) NON-REACTIVE HEPATITIS C ANTIBODY (test c ode = 4675) NON-REACTIVE INTERPRETATION HEPATITIS A: (test code = 2552) (NOTE) INTERPRETATION HEPATITIS B: (test code = 89007) (NOTE) INTERPRETATION HEPATITIS C: (test code = 78226) (NOTE) [id number] 00:00:00* Test Item Value Reference Range Interpretation Comme nts RPR RESULT (test code = 3501) NON-REACTIVE RPR TITER (test code = 3500) NOT INDIC. TITER HIV AB/AG COMBO RFLX [id number] 00:00:00* Test Item Value Reference Range Interpretation Comme nts HIV 1/2 4TH GEN, RFLX CONF ( test code = 3514) NON-REACTIVE VAGINAL PATHOGENS DNA [id number] 00:00:00* Test Item Value Reference Range Interpretation Comme nts SILVIA SPECIES (test code = ) NEGATIVE G. VAGINALIS (test code = 78615) NEGATIVE T. VAGINALIS (test code = 49221) NEGATIVE ACUTE HEPATITIS [id number] 00:00:00* Test Item Value Reference Range Interpretation Comme nts HEPATITIS A IgM (test code = 42728) NON-REACTIVE HEPATITIS B CORE IgM (test c ode = 4644) NON-REACTIVE HEPATITIS B SURF AG (test co de = 2739) NON-REACTIVE HEPATITIS C ANTIBODY (test c ode = 4675) NON-REACTIVE INTERPRETATION HEPATITIS A: (test code = 2552) (NOTE) INTERPRETATION HEPATITIS B: (test code = 76362) (NOTE) INTERPRETATION HEPATITIS C: (test code = 58875) (NOTE) [id number] 00:00:00* Test Item Value Reference Range Interpretation Comme nts RPR RESULT (test code = 3501) NON-REACTIVE RPR TITER (test code = 3500) NOT INDIC. TITER HIV AB/AG COMBO RFLX [id number] 00:00:00* Test Item Value Reference Range Interpretation Comme nts HIV 1/2 4TH GEN, RFLX CONF ( test code = 3514) NON-REACTIVE Jarett F AustinVAGINAL PATHOGENS DNA [id number] 00:00:00* Test Item Value Reference Range Interpretation Comme nts SILVIA SPECIES (test code = ) NEGATIVE G. VAGINALIS (test code = 59937) NEGATIVE T. VAGINALIS (test code = 35637) NEGATIVE Jarett F AustinACUTE HEPATITIS [id number] 00:00:00* Test Item Value Reference Range Interpretation Comme nts HEPATITIS A IgM (test code = 82924) NON-REACTIVE HEPATITIS B CORE IgM (test c ode = 4644) NON-REACTIVE HEPATITIS B SURF AG (test co de = 2739) NON-REACTIVE HEPATITIS C ANTIBODY (test c ode = 4675) NON-REACTIVE INTERPRETATION HEPATITIS A: (test code = 2552) (NOTE) INTERPRETATION HEPATITIS B: (test code = 37367) (NOTE) INTERPRETATION HEPATITIS C: (test code = 97934) (NOTE) Jarett F [id number] 00:00:00* Test Item Value Reference Range Interpretation Comme nts RPR RESULT (test code = 3501) NON-REACTIVE RPR TITER (test code = 3500) NOT INDIC. TITER Jarett SavageHIV AB/AG COMBO RFLX [id number] 00:00:00* Test Item Value Reference Range Interpretation Comme nts HIV 1/2 4TH GEN, RFLX CONF ( test code = 3514) NON-REACTIVE Jarett Zurita AustinVAGINAL PATHOGENS DNA [id number] 00:00:00* Test Item Value Reference Range Interpretation Comme nts SILVIA SPECIES (test code = ) NEGATIVE G. VAGINALIS (test code = 56844) NEGATIVE T. VAGINALIS (test code = 45070) NEGATIVE Jarett SavageACUTE HEPATITIS [id number] 00:00:00* Test Item Value Reference Range Interpretation Comme nts HEPATITIS A IgM (test code = 01053) NON-REACTIVE HEPATITIS B CORE IgM (test c ode = 4644) NON-REACTIVE HEPATITIS B SURF AG (test co de = 2739) NON-REACTIVE HEPATITIS C ANTIBODY (test c ode = 4675) NON-REACTIVE INTERPRETATION HEPATITIS A: (test code = 2552) (NOTE) INTERPRETATION HEPATITIS B: (test code = 22657) (NOTE) INTERPRETATION HEPATITIS C: (test code = 28552) (NOTE) Jarett [id number] 00:00:00* Test Item Value Reference Range Interpretation Comme nts RPR RESULT (test code = 3501) NON-REACTIVE RPR TITER (test code = 3500) NOT INDIC. TITER Jarett SavageHIV AB/AG COMBO RFLX [id number] 00:00:00* Test Item Value Reference Range Interpretation Comme nts HIV 1/2 4TH GEN, RFLX CONF ( test code = 3514) NON-REACTIVE Jarett Zurita AustinVAGINAL PATHOGENS DNA [id number] 00:00:00* Test Item Value Reference Range Interpretation Comme nts SILVIA SPECIES (test code = 29254) NEGATIVE G. VAGINALIS (test code = 26485) NEGATIVE T. VAGINALIS (test code = 55702) NEGATIVE Jarett SavageACUTE HEPATITIS [id number] 00:00:00* Test Item Value Reference Range Interpretation Comme nts HEPATITIS A IgM (test code = 63575) NON-REACTIVE HEPATITIS B CORE IgM (test c ode = 4644) NON-REACTIVE HEPATITIS B SURF AG (test co de = 2739) NON-REACTIVE HEPATITIS C ANTIBODY (test c ode = 4675) NON-REACTIVE INTERPRETATION HEPATITIS A: (test code = 2552) (NOTE) INTERPRETATION HEPATITIS B: (test code = 62537) (NOTE) INTERPRETATION HEPATITIS C: (test code = 00236) (NOTE) Jarett [id number] 00:00:00* Test Item Value Reference Range Interpretation Comme nts RPR RESULT (test code = 3501) NON-REACTIVE RPR TITER (test code = 3500) NOT INDIC. TITER Jarett Savage
--- NOTE | 2024-03-04 09:18 | EDPHYS ---
Physician Documentation [facility] Name: Miriam Giraldo Age: 18 yrs Sex: Female : 2005 Arrival Date: 03/04/2024 Time: 08:19 Bed 14 Private MD: ED Physician Kavin Woods HPI: 03/04 09:13 This 18 yrs old Female presents to ER via Ambulatory with complaints of bumps on lips rn and neck. 09:13 The patient's rash thought to be caused by an unknown cause. The rash is located on the rn body diffusely. Onset: The symptoms/episode began/occurred 3 day(s) ago. Severity of symptoms: At their worst the symptoms were mild in the emergency department the symptoms have improved. The patient has not experienced similar symptoms in the past. Patient reports seen here 3 days ago and diagnosed with scarlet fever. Put on amoxicillin and overall symptoms are improving. Today noticed bumpy rash on her lips elbows and neck. Does not itch. No trouble breathing. Reports overall symptoms are improving.. Historical: - Allergies: 08:36 No Known Allergies; iw - Home Meds: 08:36 Depo-Provera IM [Active]; iw - PMHx: 08:36 None; iw - PSHx: 08:36 None; iw - Immunization history:: Adult Immunizations not up to date. - Infectious Disease History:: Denies. - Social history:: Smoking status: Patient denies any tobacco usage or history of. - Family history:: not pertinent. - Hospitalizations: : No recent hospitalization is reported. ROS: 09:13 Constitutional: Negative for fever, chills, and weight loss, ENT: Positive for bumps on rn lips neck and elbows Cardiovascular: Negative for chest pain, palpitations, and edema, Respiratory: Negative for shortness of breath, cough, wheezing, and pleuritic chest pain, Abdomen/GI: Negative for abdominal pain, nausea, vomiting, diarrhea, and constipation, Exam: 09:13 Constitutional: This is a well developed, well nourished patient who is awake, alert, rn and in no acute distress. Head/Face: Normocephalic, atraumatic. ENT: Both lips with papular rash, no pustules, no desquamation. No intraoral lesions. No stridor. Neck: No meningismus Skin: Maculopapular rash over anterior neck, no urticaria, no desquamation, no target lesions. No petechiae. Vital Signs: 08:35 BP 117 / 84; Pulse 102; Resp 16; Temp 98.6(O); Pulse Ox 100% on R/A; Weight 44.45 kg; iw Height 5 ft. 2 in. ; 09:33 BP 121 / 79; Pulse 86; Resp 16; Pulse Ox 98% ; bp 08:35 Body Mass Index 17.92 (44.45 kg, 157.48 cm) - Percentile 5.8 % iw MDM: 08:26 Medical Screening Exam initiated rn 09:13 Differential diagnosis: Viral exanthem, reaction to amoxicillin, scarlet fever. Data rn reviewed: vital signs, nurses notes, old medical records, and as a result, I will discharge patient. Counseling: I had a detailed discussion with the patient and/or guardian regarding the historical points, exam findings, and any diagnostic results supporting the discharge/admit diagnosis, the need for outpatient follow up, to return to the emergency department if symptoms worsen or persist or if there are any questions or concerns that arise at home. Special discussion: I discussed with the patient/guardian in detail that at this point there is no indication for admission to the hospital. It is understood, however, that if the symptoms persist or worsen the patient needs to return immediately for re-evaluation. ED course: Last visit reviewed, no test sent at that time. Unsure if his strep originally or could have been mono or viral exanthem with new rash secondary to antibiotic. Overall symptoms are improving and no concerning signs for worse rash such as Bhakta-Emmett's. Will continue antibiotics as she has had amoxicillin multiple times without reactions in the past and overall symptoms are improving. Recommend PCP follow-up.. Administered Medications: No medications were administered Disposition Summary: 03/04/24 09:17 Discharge Ordered Notes: Location: Home rn Problem: new rn Symptoms: have improved rn Condition: Stable rn Diagnosis - Rash and other nonspecific skin eruption rn Followup: rn - With: Private Physician - When: As needed - Reason: Recheck today's complaints, Re-evaluation by your physician Discharge Instructions: - Discharge Summary Sheet rn - Rash, Adult rn Forms: - Work release form iw - Medication Reconciliation Form rn - Antibiotic rn office - Prescription Opioid Use rn - Patient Portal Instructions rn - Leadership Thank You Letter rn Prescriptions: - Prednisone 20 mg Oral Tablet - take 2 tablets ORAL route once daily for 5 days; 10 tablet; Refills: 0, Product rn Selection Permitted Signatures: Ila Grayson RN RN Kavin Rinaldi MD MD rn
--- NOTE | 2024-03-04 09:18 | ER ---
Nurse's Notes [facility] Name: Miriam Giraldo Age: 18 yrs Sex: Female : 2005 Arrival Date: 03/04/2024 Time: 08:19 Bed 14 Private MD: Diagnosis: Rash and other nonspecific skin eruption Presentation: 03/04 08:34 Chief complaint: Patient states: was diagnosed with strep/scarlet fever on Saturday , iw started on Amocillin , now has rash on neck and sores on her lips. Coronavirus screen: At this time, the client does not indicate any symptoms associated with coronavirus-19. Ebola Screen: No symptoms or risks identified at this time. 08:34 Method Of Arrival: Ambulatory iw 08:35 Acuity: ELIDA 4 iw 08:36 Initial Sepsis Screen: Does the patient meet any 2 criteria? No. Patient's initial iw sepsis screen is negative. Does the patient have a suspected source of infection? No. Patient's initial sepsis screen is negative. Risk Assessment: Do you want to hurt yourself or someone else? Patient reports no desire to harm self or others. Onset of symptoms was March 04, 2024. Triage Assessment: 08:42 General: Appears in no apparent distress. ill, Behavior is cooperative, appropriate for bp age, anxious. Pain: Complains of pain in mouth and neck. EENT: Throat is reddened. Neuro: No deficits noted. Cardiovascular: No deficits noted. Respiratory: No deficits noted. GI: No signs and/or symptoms were reported involving the gastrointestinal system. : No signs and/or symptoms were reported regarding the genitourinary system. Derm: Reports RASH. Musculoskeletal: No deficits noted. Historical: - Allergies: 08:36 No Known Allergies; iw - Home Meds: 08:36 Depo-Provera IM [Active]; iw - PMHx: 08:36 None; iw - PSHx: 08:36 None; iw - Immunization history:: Adult Immunizations not up to date. - Infectious Disease History:: Denies. - Social history:: Smoking status: Patient denies any tobacco usage or history of. - Family history:: not pertinent. - Hospitalizations: : No recent hospitalization is reported. Screenin:43 [facility] ED Fall Risk Assessment (Adult) History of falling in the last 3 months, bp including since admission No falls in past 3 months (0 pts) Confusion or Disorientation No (0 pts) Intoxicated or Sedated No (0 pts) Impaired Gait No (0 pts) Mobility Assist Device Used No (0 pt) Altered Elimination No (0 pt) Score/Fall Risk Level 0 - 2 = Low Risk Oriented to surroundings. Abuse screen: Denies threats or abuse. Denies injuries from another. Nutritional screening: No deficits noted. Tuberculosis screening: No symptoms or risk factors identified. Assessment: 08:43 General: Appears in no apparent distress. ill, Behavior is cooperative, appropriate for bp age, anxious. Vital Signs: 08:35 BP 117 / 84; Pulse 102; Resp 16; Temp 98.6(O); Pulse Ox 100% on R/A; Weight 44.45 kg; iw Height 5 ft. 2 in. ; 09:33 BP 121 / 79; Pulse 86; Resp 16; Pulse Ox 98% ; bp 08:35 Body Mass Index 17.92 (44.45 kg, 157.48 cm) - Percentile 5.8 % iw ED Course: 08:22 Patient arrived in ED. im 08:26 Kavin Woods MD is Attending Physician. rn 08:36 Triage completed. iw 08:37 Arm band placed on. iw 08:41 Severiano Muhammad, ANGELITO is Primary Nurse. bp 08:43 Patient has correct armband on for positive identification. bp 09:35 No provider procedures requiring assistance completed. Patient did not have IV access bp during this emergency room visit. Administered Medications: No medications were administered Medication: 08:43 VIS not applicable for this client. bp Outcome: 09:17 Discharge ordered by . rn 09:35 Discharged to home ambulatory, with family, bp 09:35 Condition: stable 09:35 Discharge instructions given to patient, Instructed on discharge instructions, follow up and referral plans. medication usage, Demonstrated understanding of instructions, follow-up care, medications, Prescriptions given X 1, 09:36 Patient left the ED. bp Signatures: Ila Grayson RN RN iw Kavin Woods MD MD rn Peltier, Brian, RN Rehana Devries im Corrections: (The following items were deleted from the chart) 08:43 08:35 BP 117 / 84; Pulse 102bpm; Resp 16bpm; Pulse Ox 100% RA; 44.45 kg; Height 5 ft. 2 iw in.; BMI: 17.9 (5.8%); iw 09:33 09:33 BP 117 / 84; Pulse 86bpm; Resp 16bpm; Pulse Ox 98%; bp bp
[2024-03-04 09:41] VITALS: TEMP 98.6
[2024-03-04 09:42] VITALS: BP 121/79; O2SAT 98
== END 2024-03-04 09:36 | disposition home or self-care (01) ==
LOC: ER 08:19
DX: R21 Rash and other nonspecific skin eruption (principal)
CPT/HCPCS: 99283